=== PATIENT | male | born 1935 | race Caucasian/White ===

== ENCOUNTER 2021-03-10 11:17 | Inpatient (IN) | payer MEDICARE, BC ==
[2021-03-10] MEDS ORDERED: Sodium Chloride 0.9% 1,000 ML IV ONE ×2 (11:19→13:22)
--- NOTE | 2021-03-10 12:13 | EDM.PDOC ---
ED HPI GENERAL MEDICAL PROBLEM - General Stated Complaint: FELL Time Seen by Provider: 03/10/21 11:17 Source of Information: Reports: Patient - History of Present Illness INITIAL COMMENTS - FREE TEXT/NARRATIVE: c/o confusion pt quite confused re hx, at times he says he was on porch and fell and could not get up, other times he says he went to get his mail and could not get back to the house and spent the night in his neighbor's vehicle pt was found by a neighbor on the front lawn, he was brought to ED by EMS, there was dried stool on his legs, wearing a depends, clothing was soiled RN noted several acute bruises on dependent areas c/w prolonged lying, skin tear R elbow repaired by RN with SS when asked if he drives, he says "of course, I have a pickup and a car" however, he is O x 1 sister at bedside and has no recent hx, sister states he is mild memory problems head CT with severe atrophy per Dr Nelson without acute findings 1v CxR showed a possible apical lung mass per Dr Nelson who requested lordotic view - Related Data Allergies Allergy/AdvReac Type Severity Reaction Status Date / Time No Known Allergies Allergy Verified 04/07/15 09:07 Home Meds: Home Meds Furosemide [Lasix] 20 mg PO DAILY 04/07/15 [History] Metoprolol Tartrate 50 mg PO BID 04/07/15 [History] Multivit-Min/FA/Lycopen/Lutein [Centrum Silver Tablet] 1 each PO DAILY 04/07/15 [History] allopurinoL [Zyloprim] 300 mg PO DAILY 04/07/15 [History] Calcitriol 0.5 mcg .M.W.F.SAT 03/10/21 [History] Sodium Bicarbonate 325 mg PO BID 03/10/21 [History] amLODIPine [Norvasc] 10 mg PO DAILY 03/10/21 [History] predniSONE [Prednisone] 5 mg PO DAILY 03/10/21 [History] Past Medical History - Past Surgical History Other HEENT Surgeries/Procedures: THYROID SURGERY ED ROS GENERAL - Review of Systems Review Of Systems: See Below Constitutional: Reports: No Symptoms HEENT: Reports: No Symptoms Respiratory: Reports: No Symptoms Cardiovascular: Reports: No Symptoms Endocrine: Reports: No Symptoms GI/Abdominal: Reports: No Symptoms : Reports: No Symptoms Musculoskeletal: Reports: No Symptoms Skin: Reports: No Symptoms Neurological: Reports: Confusion Psychiatric: Reports: No Symptoms Hematologic/Lymphatic: Reports: No Symptoms Immunologic: Reports: No Symptoms ED EXAM, NEURO - Physical Exam Exam: See Below Exam Limited By: Altered Mental Status General Appearance: Alert, Other (talks complete sentences, confused) Eye Exam: Bilateral Eye: PERRL Ears: Hearing Grossly Normal Nose: Normal Inspection Throat/Mouth: Normal Inspection, Normal Lips, Normal Voice, No Airway Compromise Head Exam: Atraumatic, Normocephalic Neck: Normal Inspection, Supple, Non-Tender, Full Range of Motion. No: Lymphadenopathy (R), Lymphadenopathy (L) Respiratory/Chest: No Respiratory Distress, Lungs Clear, Normal Breath Sounds, Chest Non-Tender Cardiovascular: Regular Rate, Rhythm, No Edema, No Murmur GI/Abdominal: Soft, Non-Tender, No Distention Neurological: Alert, Normal Mood/Affect, CN II-XII Intact, No Motor/Sensory Deficits, Other (he states he is in [place], [place] and [employer]) Back Exam: Normal Inspection, Full Range of Motion Extremities: Other (1-2+ edema for foot/ankle/pretib b/l, trace edema above knees b/l) Psychiatric: Normal Affect, Normal Mood, Other (pleasant, talkative, jovial) Skin Exam: Warm, Dry, Intact, Other (erythema without skin breakdown on pelvis posteriorly c/w prolonged pressure) #1 Interpretation EKG Date: 03/10/21 Time: 11:50 Rhythm: NSR [place]: Normal Comparison: NA - No Prior EKG EKG Interpretation Comments: SR, inc'd SC 224, 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, incomplete RBBB and LAFB Course - Vital Signs Last Recorded V/S: Last Vital Signs Temp 36.7 C 03/10/21 11:17 Pulse 89 03/10/21 11:17 Resp 18 03/10/21 11:17 BP 119/67 03/10/21 11:17 Pulse Ox - Orders/Labs/Meds Orders: Active Orders 24 hr Category Date Time Status EKG Documentation Completion [RC] ASDIRECTED Care 03/10/21 11:20 Ordered Chest 1V Frontal [CR] Stat Exams 03/10/21 Taken Chest 1V Frontal [CR] Stat Exams 03/10/21 11:19 Ordered CORONAVIRUS COVID-19 RHODA [MOLEC] Stat Lab 03/10/21 11:21 Ordered CULTURE BLOOD [BC] Urgent Lab 03/10/21 11:20 Ordered CULTURE BLOOD [BC] Urgent Lab 03/10/21 11:20 Ordered CULTURE URINE [RM] Stat Lab 03/10/21 13:28 Ordered UA W/MICROSCOPIC [URIN] Stat Lab 03/10/21 11:19 Ordered Sodium Chloride 0.9% [Normal Saline] 1,000 ml Med 03/10/21 13:22 Ordered IV .BOLUS Blood Culture x2 Reflex Set [OM.PC] Urgent Oth 03/10/21 11:19 Ordered EKG 12 Lead [EK] Routine Ther 03/10/21 11:19 Ordered Medication Orders Sodium Chloride (Normal Saline) 1,000 mls @ 999 mls/hr IV .BOLUS ONE Stop: 03/10/21 14:22 Last Admin: 03/10/21 13:29 Dose: 999 mls/hr Documented by: JOSE EDUARDO Labs: Laboratory Tests 03/10/21 03/10/21 03/10/21 Range/Units 12:25 12:25 12:25 WBC 17.4 H (3.2-10.1) x10-3/uL RBC 4.05 (3.90-5.90) x10(6)uL Hgb 12.5 L (12.9-17.7) g/dL Hct 38.9 (38.3-50.1) % MCV 96.1 (80.8-98.7) fL MCH 30.9 (27.0-33.3) pg MCHC 32.2 (28.7-35.3) g/dL RDW 16.7 H (12.4-15.0) % Plt Count 219 (117-477) x10(3)uL MPV 7.8 (6.7-11.0) fL Add Manual Diff Yes Neutrophils % (Manual) 86 H (46-82) % Lymphocytes % (Manual) 8 L (13-37) % Monocytes % (Manual) 6 (4-12) % Sodium 146 H (135-145) mmol/L Potassium 4.6 (3.5-5.3) mmol/L Chloride 106 (100-110) mmol/L Carbon Dioxide 21 (21-32) mmol/L BUN 59 H (7-18) mg/dL Creatinine 4.6 H* (0.70-1.30) mg/dL Est Cr Clr Drug Dosing 13.40 mL/min Estimated GFR (MDRD) 12 L (>60) BUN/Creatinine Ratio 12.8 (9-20) Glucose 87 (80-116) mg/dL Lactic Acid (0.4-2.0) mmol/L Calcium 11.1 H (8.6-10.2) mg/dL Total Bilirubin 0.6 (0.1-1.3) mg/dL AST 24 (5-25) IU/L ALT 24 (12-36) U/L Alkaline Phosphatase 77 (56-112) IU/L Creatine Kinase 242 H (60-160) IU/L Troponin I 70.3 H* (4.0-60.3) pg/mL C-Reactive Protein 3.9 H* (0.5-0.9) mg/dL Total Protein 6.8 (6.0-8.0) g/dL Albumin 3.3 (3.2-4.6) g/dL Globulin 3.5 g/dL Albumin/Globulin Ratio 0.9 // Range/Units 12:25 WBC (3.2-10.1) x10-3/uL RBC (3.90-5.90) x10(6)uL Hgb (12.9-17.7) g/dL Hct (38.3-50.1) % MCV (80.8-98.7) fL MCH (27.0-33.3) pg MCHC (28.7-35.3) g/dL RDW (12.4-15.0) % Plt Count (117-477) x10(3)uL MPV (6.7-11.0) fL Add Manual Diff Neutrophils % (Manual) (46-82) % Lymphocytes % (Manual) (13-37) % Monocytes % (Manual) (4-12) % Sodium (135-145) mmol/L Potassium (3.5-5.3) mmol/L Chloride (100-110) mmol/L Carbon Dioxide (21-32) mmol/L BUN (7-18) mg/dL Creatinine (0.70-1.30) mg/dL Est Cr Clr Drug Dosing mL/min Estimated GFR (MDRD) (>60) BUN/Creatinine Ratio (9-20) Glucose (80-116) mg/dL Lactic Acid 3.6 H* (0.4-2.0) mmol/L Calcium (8.6-10.2) mg/dL Total Bilirubin (0.1-1.3) mg/dL AST (5-25) IU/L ALT (12-36) U/L Alkaline Phosphatase (56-112) IU/L Creatine Kinase (60-160) IU/L Troponin I (4.0-60.3) pg/mL C-Reactive Protein (0.5-0.9) mg/dL Total Protein (6.0-8.0) g/dL Albumin (3.2-4.6) g/dL Globulin g/dL Albumin/Globulin Ratio Meds: Medications Generic Name Dose Route Start Last Admin Trade Name Freq PRN Reason Stop Dose Admin Sodium Chloride 1,000 mls @ 999 mls/hr 03/10/21 13:22 03/10/21 13:29 Normal Saline IV 03/10/21 14:22 999 mls/hr .BOLUS ONE Administration Discontinued Medications Generic Name Dose Route Start Last Admin Trade Name Freq PRN Reason Stop Dose Admin Ceftriaxone Sodium 1 gm 03/10/21 13:23 03/10/21 13:29 Ceftriaxone 2 Gm Vial IVPUSH 03/10/21 13:24 1 gm ONETIME ONE Administration Sodium Chloride 1,000 mls @ 999 mls/hr 03/10/21 11:19 03/10/21 12:15 Normal Saline IV 03/10/21 12:19 999 mls/hr .BOLUS ONE Administration - Re-Assessments/Exams Free Text/Narrative Re-Assessment/Exam: 03/10/21 13:43 vss, however pt developed rigors at time cath u/a obtained, ceftriaxone ordered CxR without pneumonia, no cough, no fever however pt has inc'd wbc/segs/crp mod bacteria from cath u/a c/w uti pt d/w Dr Kendrick who accepted pt in admission and is at bedside sister, nephew and his , all 3 at bedside nephew reports pt has kidney function at 13% SG 1.020, no ketones in cath urine after 1 liter NS still no spontaneous void after 1.5 liters NS baseline cognitive status uncertain, some delirium is present d/t infection, however underlying dementia likely cause of majority of confusion CK only minimally elevated at 1.5x ULN, suggesting pt was not outside all night on the grass, it rained during the night and pt is not hypothermic (temp carmita 69, temp now in midday at 86 and sun), has a normal temp now rbc in u/a c/w cath, as blood present at the time Departure - Departure Time of Disposition: 13:55 Disposition: Admitted As Inpatient 65 Condition: Fair Clinical Impression: Confusion, Moderate dehydration, Urinary tract infection, Lactic acidosis, Cerebral atrophy, Chronic kidney disease (CKD), Elevated C-reactive protein (CRP), Elevated WBC count, Left shift, Fall, Unable to stand up, Rhabdomyolysis, Delirium - Discharge Information *PRESCRIPTION DRUG MONITORING PROGRAM REVIEWED*: Not Applicable *COPY OF PRESCRIPTION DRUG MONITORING REPORT IN PATIENT KELLIE: Not Applicable Sepsis Event Note (ED) - Evaluation Sepsis Screening Result: No Definite Risk - Focused Exam Vital Signs: Vital Signs Temp Pulse Resp BP 03/10/21 11:17 36.7 C 89 18 119/67 - My Orders Last 24 Hours: My Active Orders 03/10/21 Chest 1V Frontal [CR] Stat 03/10/21 11:19 Chest 1V Frontal [CR] Stat UA W/MICROSCOPIC [URIN] Stat Blood Culture x2 Reflex Set [OM.PC] Urgent EKG 12 Lead [EK] Routine 03/10/21 11:20 EKG Documentation Completion [RC] ASDIRECTED CULTURE BLOOD [BC] Urgent CULTURE BLOOD [BC] Urgent 03/10/21 11:21 CORONAVIRUS COVID-19 RHODA [MOLEC] Stat 03/10/21 13:22 Sodium Chloride 0.9% [Normal Saline] 1,000 ml IV .BOLUS 03/10/21 13:28 CULTURE URINE [RM] Stat - Assessment/Plan Last 24 Hours: My Active Orders 03/10/21 Chest 1V Frontal [CR] Stat 03/10/21 11:19 Chest 1V Frontal [CR] Stat UA W/MICROSCOPIC [URIN] Stat Blood Culture x2 Reflex Set [OM.PC] Urgent EKG 12 Lead [EK] Routine 03/10/21 11:20 EKG Documentation Completion [RC] ASDIRECTED CULTURE BLOOD [BC] Urgent CULTURE BLOOD [BC] Urgent 03/10/21 11:21 CORONAVIRUS COVID-19 RHODA [MOLEC] Stat 03/10/21 13:22 Sodium Chloride 0.9% [Normal Saline] 1,000 ml IV .BOLUS 03/10/21 13:28 CULTURE URINE [] Stat
--- NOTE | 2021-03-10 13:07 | CT ---
INDICATION: Confusion, disoriented. CT HEAD WITHOUT CONTRAST: Spiral 3.75 mm axial sections were obtained through the brain without contrast with axial, sagittal, and coronal reconstructions 03/10/21 - no comparison. Total exam DLP was 1554.24 milligray-cm. There is thinning of the skull at the posterior parietal area on the right which may be developmental. No cranial fracture site was seen. The orbits appear to be intact with calcifications in the posterior globes bilaterally. The paranasal sinuses appeared well aerated. The mastoid air cells appear to be fairly well aerated except for a few more superior air cells on the right which could represent mastoiditis. Degenerative changes are noted at the odonto- atlantian joint of moderate degree. 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 There is no shift of midline structures. The ventricles and sulci are prominent compatible with cerebral atrophy of moderate degree. Fairly severe decreased density in the white matter is compatible with moderately severe microvascular disease type changes, but could also be on the basis of process such anoxic encephalopathy or other leukoencephalopathy. No definite bleeding site or hematoma was seen. IMPRESSION: 1. 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 2. Fairly severe generalized atrophy of the brain. 3. 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 4. Calcifications in the retinal areas of the globes bilaterally. 5. Slight deformity along the right posterior parietal bone with thinning of the cortex which may be developmental. Report was called to Dr. Pat at 1157 hours 03/10/21. [facility]
[2021-03-10] MEDS ORDERED: cefTRIAXone 2 GM Vial IVPUSH ONE (13:23)
--- NOTE | 2021-03-10 14:31 | PCM.HP.2 ---
H&P History of Present Illness - General Date of Service: 03/10/21 Admit Problem/Dx: Admission Diagnosis/Problem Admission Diagnosis/Problem Leukocytosis, UTI, confusion Source of Information: Patient, Family, Provider (ER) History Limitations: Reports: Altered Mental Status (confusion) - History of Present Illness Initial Comments - Free Text/Narative: Abhinav was brought in by EMS today, he was found by his neighbor on the front lawn this morning, had dried stool on his legs, wearing depends, clothing was soiled. He stated that he got wet and dried and then got wet again. It had rained overnight. His twin sister said she checked on his last night about 1030 and he was in bed. His nephew and sister didn't know if when power went out if something was alarming and he woke up and went outside or why he went outdoors. ER nurse noted acute bruises on dependent areas consistent with prolonged supine position, skin tear to left elbow, nurse placed steri-strips. He stated it was Monday, the month was March but knew it was 2020. He is a patient of Dr Valdez last saw him 01/22 and he saw his head track coach Dr Linedr on 02/[address] [facility]. His Creatinine on 02/23 was 4.01 and 01/22 was 4.54. 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 H ER: Head CT with severe atrophy per Dr Nelson without acute findings. CXR 1V showed a possible apical lung mass per Dr Nelson who requested lordotic view, which was clear. WBC was 17.4, Hgb 12.5, Plt 219. K 4.6, Cr 4.6, BUN 59. CRP 3.9, CK 242, troponin 70.3 Lactic acid 3.6. UA showed blood, no nitrites or leukocyte esterase, no WBC >100 RBCs but few epithelial cells, moderate bacteria, straight cathed specimen so blood likely from collection technique. Rocephin 1 gram given in ER and 2 L of fluids given. Covid vaccines 10/07 & 11/04/2020. - Related Data Allergies/Adverse Reactions: Allergies Allergy/AdvReac Type Severity Reaction Status Date / Time No Known Allergies Allergy Verified 04/07/15 09:07 Home Medications: Home Meds Multivit-Min/FA/Lycopen/Lutein [Centrum Silver Tablet] 1 each PO DAILY 04/07/15 [History] allopurinoL [Zyloprim] 300 mg PO DAILY 04/07/15 [History] Calcitriol 0.5 mcg .M.W.F.SAT 03/10/21 [History] Ergocalciferol (Vitamin D2) [Vitamin D2] 1.25 mg PO WEEKLY 03/10/21 [History] Furosemide 40 mg PO DAILY 03/10/21 [History] Metoprolol Succinate [Toprol XL 100mg] 100 mg PO BEDTIME 03/10/21 [History] Sodium Bicarbonate 325 mg PO BID 03/10/21 [History] amLODIPine Besylate [Amlodipine Besylate] 10 mg PO BEDTIME 03/10/21 [History] predniSONE [Prednisone] 5 mg PO DAILY 03/10/21 [History] Past Medical History Cardiovascular History: Reports: Heart Failure, Hypertension, Pacemaker Genitourinary History: Reports: Other (See Below) Other Genitourinary History: CKD-Stage V, polycystic kidney Musculoskeletal History: Reports: Osteoarthritis, Other (See Below) Other Musculoskeletal History: synovial cyst of hip Neurological History: Reports: Other (See Below) Other Neuro History: Extensive dementia Psychiatric History: Reports: Dementia Endocrine/Metabolic History: Reports: Other (See Below) Other Endocrine/Metabolic History: hyperuricemia Hematologic History: Reports: Anemia Oncologic (Cancer) History: Reports: Basal Cell Carcinoma - Past Surgical History Other HEENT Surgeries/Procedures: THYROID SURGERY Social & Family History - Family History Family Medical History: No Pertinent Family History - Tobacco Use Tobacco Use Status *Q: Never Tobacco User Second Hand Smoke Exposure: No - Caffeine Use Caffeine Use: Reports: Coffee - Recreational Drug Use Recreational Drug Use: No H&P Review of Systems - Review of Systems: Review Of Systems: See Below General: Reports: Chills. Denies: Fever HEENT: Denies: Ear Pain, Sinus Congestion, Sore Throat Pulmonary: Reports: Cough. Denies: Shortness of Breath Cardiovascular: Reports: No Symptoms Gastrointestinal: Reports: No Symptoms Genitourinary: Reports: No Symptoms Musculoskeletal: Reports: No Symptoms Skin: Reports: Bruising Neurological: Reports: Confusion Hematologic/Lymphatic: Reports: Easy Bruising Exam - Exam Exam: See Below - Vital Signs Vital Signs: Last Vital Signs Temp 97.8 F 03/10/21 11:30 Pulse 88 03/10/21 13:30 Resp 15 03/10/21 13:30 BP 114/70 03/10/21 13:30 Pulse Ox 97 03/10/21 13:30 Weight: 228 lb 9.9 oz - Exam General: Alert, Oriented (person, pleasantly confused), Cooperative HEENT: PERRLA, Conjunctiva Clear, EOMI, Hearing Intact, Nares Patent, Posterior Pharynx Clear, TMs Clear (grass present in right canal, removed with speculum). No: Mucosa Moist & [place] Neck: Trachea Midline. No: Lymphadenopathy Lungs: Clear to Auscultation, Normal Respiratory Effort. No: Crackles, Wheezing Cardiovascular: Regular Rate, Regular Rhythm GI/Abdominal Exam: Normal Bowel Sounds, Soft, Non-Tender, No Distention (Male) Exam: Deferred Rectal (Males) Exam: Deferred Extremities: Pedal Edema (1+ pitting BLE), Pallor. No: Increased Warmth Peripheral Pulses: 2+: Radial (L), Radial (R), Posterior Tibial (L), Posterior Tibial (R) Skin: Ecchymosis (dependent area, bilateral arms), Other (stasis dermatitis BLE) Neurological: Cranial Nerves Intact, Normal Speech, Normal Tone Neuro Extensive - Mental Status: Disorientation to Place, Disorientation to Time, Memory Loss-Recent Events, Nl Response to Commands - Patient Data Lab Results Last 24 hrs: Laboratory Results - last 24 hr 03/10/21 03/10/21 03/10/21 Range/Units 12:25 12:25 12:25 WBC 17.4 H (3.2-10.1) x10-3/uL RBC 4.05 (3.90-5.90) x10(6)uL Hgb 12.5 L (12.9-17.7) g/dL Hct 38.9 (38.3-50.1) % MCV 96.1 (80.8-98.7) fL MCH 30.9 (27.0-33.3) pg MCHC 32.2 (28.7-35.3) g/dL RDW 16.7 H (12.4-15.0) % Plt Count 219 (117-477) x10(3)uL MPV 7.8 (6.7-11.0) fL Add Manual Diff Yes Neutrophils % (Manual) 86 H (46-82) % Lymphocytes % (Manual) 8 L (13-37) % Monocytes % (Manual) 6 (4-12) % Sodium 146 H (135-145) mmol/L Potassium 4.6 (3.5-5.3) mmol/L Chloride 106 (100-110) mmol/L Carbon Dioxide 21 (21-32) mmol/L BUN 59 H (7-18) mg/dL Creatinine 4.6 H* (0.70-1.30) mg/dL Est Cr Clr Drug Dosing 13.40 mL/min Estimated GFR (MDRD) 12 L (>60) BUN/Creatinine Ratio 12.8 (9-20) Glucose 87 (80-116) mg/dL Lactic Acid (0.4-2.0) mmol/L Calcium 11.1 H (8.6-10.2) mg/dL Total Bilirubin 0.6 (0.1-1.3) mg/dL AST 24 (5-25) IU/L ALT 24 (12-36) U/L Alkaline Phosphatase 77 (56-112) IU/L Creatine Kinase 242 H (60-160) IU/L Troponin I 70.3 H* (4.0-60.3) pg/mL C-Reactive Protein 3.9 H* (0.5-0.9) mg/dL Total Protein 6.8 (6.0-8.0) g/dL Albumin 3.3 (3.2-4.6) g/dL Globulin 3.5 g/dL Albumin/Globulin Ratio 0.9 Urine Color (YELLOW) Urine Appearance (CLEAR) Urine pH (5.0-6.5) Ur Specific [place] (1.010-1.025) Urine Protein (NEGATIVE) mg/dL Urine Glucose (UA) (NORMAL) mg/dL Urine Ketones (NEGATIVE) mg/dL Urine Occult Blood (NEGATIVE) Urine Nitrite (NEGATIVE) Urine Bilirubin (NEGATIVE) Urine Urobilinogen (NEGATIVE) mg/dL Ur Leukocyte Esterase (NEGATIVE) Urine RBC (0-5) Urine WBC (0-5) Ur Squamous Epith Cells (NS,R,O) Urine Bacteria (NS) 03/10/21 03/10/21 Range/Units 12:25 13:21 WBC (3.2-10.1) x10-3/uL RBC (3.90-5.90) x10(6)uL Hgb (12.9-17.7) g/dL Hct (38.3-50.1) % MCV (80.8-98.7) fL MCH (27.0-33.3) pg MCHC (28.7-35.3) g/dL RDW (12.4-15.0) % Plt Count (117-477) x10(3)uL MPV (6.7-11.0) fL Add Manual Diff Neutrophils % (Manual) (46-82) % Lymphocytes % (Manual) (13-37) % Monocytes % (Manual) (4-12) % Sodium (135-145) mmol/L Potassium (3.5-5.3) mmol/L Chloride (100-110) mmol/L Carbon Dioxide (21-32) mmol/L BUN (7-18) mg/dL Creatinine (0.70-1.30) mg/dL Est Cr Clr Drug Dosing mL/min Estimated GFR (MDRD) (>60) BUN/Creatinine Ratio (9-20) Glucose (80-116) mg/dL Lactic Acid 3.6 H* (0.4-2.0) mmol/L Calcium (8.6-10.2) mg/dL Total Bilirubin (0.1-1.3) mg/dL AST (5-25) IU/L ALT (12-36) U/L Alkaline Phosphatase (56-112) IU/L Creatine Kinase (60-160) IU/L Troponin I (4.0-60.3) pg/mL C-Reactive Protein (0.5-0.9) mg/dL Total Protein (6.0-8.0) g/dL Albumin (3.2-4.6) g/dL Globulin g/dL Albumin/Globulin Ratio Urine Color Yellow (YELLOW) Urine Appearance Cloudy (CLEAR) Urine pH 5.0 (5.0-6.5) Ur Specific [place] 1.020 (1.010-1.025) Urine Protein 100 H (NEGATIVE) mg/dL Urine Glucose (UA) Normal (NORMAL) mg/dL Urine Ketones Negative (NEGATIVE) mg/dL Urine Occult Blood Large H (NEGATIVE) Urine Nitrite Negative (NEGATIVE) Urine Bilirubin Negative (NEGATIVE) Urine Urobilinogen Normal (NEGATIVE) mg/dL Ur Leukocyte Esterase Negative (NEGATIVE) Urine RBC >100 H (0-5) Urine WBC 0-5 (0-5) Ur Squamous Epith Cells Few H (NS,R,O) Urine Bacteria Moderate H (NS) Result Diagrams: 03/10/21 12:25 03/10/21 12:25 Sepsis Event Note - Evaluation Sepsis Screening Result: No Definite Risk - Focused Exam Vital Signs: Vital Signs Temp Pulse Resp BP Pulse Ox 03/10/21 13:30 88 15 114/70 97 03/10/21 13:00 91 15 104/51 L 97 03/10/21 12:30 90 15 116/75 96 03/10/21 11:30 97.8 F 123/72 03/10/21 11:17 98.1 F 89 18 119/67 *Q Meaningful Use (ADM) - VTE *Q VTE Mechanical Contraindications *Q: At Risk for Falls - VTE Risk Assess *Q Each Risk Factor Represents 1 Point: None Total Score 1 Point Risk Factors: 0 Each Risk Factor Represents 2 Points: None Total Score 2 Point Risk Factors: 0 Each Risk Factor Represents 3 Points: Age 75 Years or Greater Total Score 3 Point Risk Factors: 3 Each Risk Factor Represents 5 Points: None Total Score 5 Point Risk Factors: 0 Venous Thromboembolism Risk Factor Score *Q: 3 - Problem List (1) Urinary tract infection SNOMED Code(s): 79439724 ICD Code: N39.0 - URINARY TRACT INFECTION, SITE NOT SPECIFIED Status: Acute Current Visit: Yes Qualifiers: Urinary tract infection type: acute cystitis Hematuria presence: with hematuria Qualified Code(s): N30.01 - Acute cystitis with hematuria (2) Elevated WBC count SNOMED Code(s): 728442997, 836249307 ICD Code: D72.829 - ELEVATED WHITE BLOOD CELL COUNT, UNSPECIFIED Status: Ac wilma Current Visit: Yes (3) Elevated C-reactive protein (CRP) SNOMED Code(s): 076081541182018 ICD Code: R79.82 - ELEVATED C-REACTIVE PROTEIN (CRP) Status: Acute C urrent Visit: Yes (4) Confusion SNOMED Code(s): 999146964 ICD Code: R41.0 - DISORIENTATION, UNSPECIFIED Status: Acute Current Visit: Yes (5) Fall SNOMED Code(s): 4611593, 128716304 ICD Code: W19.XXXA - UNSPECIFIED FALL, INITIAL ENCOUNTER Status: Acute Current Visit: Yes (6) Lactic acidosis SNOMED Code(s): 29378012 ICD Code: E87.2 - ACIDOSIS Status: Acute Current Visit: Yes (7) Moderate dehydration SNOMED Code(s): 6674772583390 ICD Code: E86.0 - DEHYDRATION Status: Acute Current Visit: Yes (8) Rhabdomyolysis SNOMED Code(s): 731540575 ICD Code: M62.82 - RHABDOMYOLYSIS Status: Acute Current Visit: Yes (9) Unable to stand up SNOMED Code(s): 099070462 ICD Code: R68.89 - OTHER GENERAL SYMPTOMS AND SIGNS Status: Acute Current Visit: Yes (10) Chronic kidney disease (CKD) SNOMED Code(s): 486319585 ICD Code: N18.9 - CHRONIC KIDNEY DISEASE, UNSPECIFIED Status: Chronic Current Visit: Yes Qualifiers: Chronic kidney disease stage: stage 5, not on chronic dialysis Qualified Code(s): N18.5 - Chronic kidney disease, stage 5 (11) Cerebral atrophy SNOMED Code(s): 679944168 ICD Code: G31.9 - DEGENERATIVE DISEASE OF NERVOUS SYSTEM, UNSPECIFIED Status: Chronic Current Visit: Yes Problem List Initiated/Reviewed/Updated: Yes Orders Last 24hrs: Active Orders 24 hr Category Date Time Status Admission Status [Patient Status] [ADT] Routine ADT 03/10/21 13:44 Active Oxygen Therapy [RC] PRN Care 03/10/21 14:07 Ordered Up With Assistance [RC] ASDIRECTED Care 03/10/21 14:06 Ordered Up to Chair [RC] ASDIRECTED Care 03/10/21 14:06 Ordered VTE/DVT Education [RC] Per Unit Routine Care 03/10/21 14:07 Ordered Vital Signs [RC] Q4H Care 03/10/21 14:07 Ordered Renal Non-Dialysis Diet [DIET] Diet 03/10/21 Dinner Ordered Chest 1V Frontal [CR] Stat Exams 03/10/21 Taken Chest 1V Frontal [CR] Stat Exams 03/10/21 11:19 Taken CBC WITH AUTO DIFF [HEME] Routine Lab 03/11/21 06:00 Ordered CULTURE BLOOD [BC] Urgent Lab 03/10/21 12:25 Received CULTURE BLOOD [BC] Urgent Lab 03/10/21 12:30 Received CULTURE URINE [RM] Stat Lab 03/10/21 13:37 Received RENAL FUNCTION PANEL,RFP [CHEM] Routine Lab 03/11/21 06:00 Ordered Sodium Chloride 0.9% @ 100 MLS/HR(1,000ml) Med 03/10/21 14:25 Ordered Sodium Chloride 0.9% [Normal Saline] 1,000 ml IV ASDIRECTED Antiembolic Hose [OM.PC] Per Unit Routine Oth 03/10/21 14:07 Ordered Blood Culture x2 Reflex Set [OM.PC] Urgent Oth 03/10/21 11:19 Ordered VTE Mechanical Contraindications [AST] Per Unit Routine Oth 03/10/21 14:06 Ordered Resuscitation Status Routine Resus Stat 03/10/21 14:06 Ordered EKG 12 Lead [EK] Routine Ther 03/10/21 11:19 Ordered Medication Orders Sodium Chloride (Normal Saline) 1,000 mls @ 100 mls/hr IV ASDIRECTED NACHO Assessment/Plan Comment:: 1. Admit for inpatient treatment of UTI, Leukocytosis, Rhabdomyolysis, Fall with prolonged supine position, CKD stage 5, Moderate dehydration, Exposure overnight, Elevated CRP. 2. UTI/Leukocytosis: WBC 17.4, received Rocephin 1 gram IV in ER continue on the floor to start tomorrow. Repeat CBC tomorrow. BC & UC pending. 3. Dehydration: baseline Cr 4.01, received 2 liters in ER, will continue NS at 100 ml/hr. 4. CKD, stage 5 not on dialysis: Cr 4.6, IVF at 100 ml/hr, renal panel for tomorrow am. 5. Rhabdomyolysis/elevated CK: Rehydration with IV fluids at 100 ml/hr, repeat CK tomorrow. 6. Fall: PT/OT. 7. Diet: Renal, non-dialysis. 8. Activity: Up to chair and with assistance. 9. DVT prophylaxis: TEDs BLE. Lovenox 30 mg SQ daily. 10. CODE STATUS: FULL code at this time. 11. Discharge: anticipate 48-72 hours, IV fluids and antibiotics. - Mortality Measure Prognosis:: Poor
[2021-03-10] MEDS: Sodium Chloride 0.9% 1,000 ML IV SCH (15:12)
[2021-03-10] MEDS ORDERED: Enoxaparin 30 MG/0.3 ML Syringe SUBCUT SCH (15:15)
--- NOTE | 2021-03-10 15:16 | CR ---
INDICATION: Weakness, question pneumonia. CHEST ONE VIEW: Portable AP upright view of the chest 03/10/21 - no comparison. The heart did not appear enlarged. Bipolar pacemaker leads are noted with a ventricular lead tip in the area of the apex of the right ventricle. The aorta is tortuous with calcifications in the arch and descending portion. There is an area of indistinct somewhat nodular density overlying the anterior end of the left first rib. This could be on the basis of a nodule or possibly simply degenerative changes at the first rib manubrial junction. An apical lordotic view should be confirmatory. A definite active infiltrate or effusion was not identified. Degenerative changes are noted at the shoulder joints. IMPRESSION: Cannot exclude an area of nodular infiltrate in the left upper lung field. Apical lordotic view recommended for further evaluation since this most likely represents degenerative change at the left first rib manubrial junction. MTDD
--- NOTE | 2021-03-10 15:22 | CR ---
INDICATION: Lordotic view, question lung mass versus degenerative changes. CHEST ONE VIEW: Two apical lordotic views of the chest were obtained 03/10/21 at 1247 hours and compared with 1212 hours portable study from earlier today. The area of possible nodularity is found to be degenerative changes at the left first rib manubrial junction - no true mass could be identified. A definite active infiltrate or effusion was not identified. IMPRESSION: No definite acute process. Report was called to Dr. Pat at 1251 hours 03/10/21. [facility]
[2021-03-10] MEDS: Heparin Sodium 5,000 Units/ML Vial SUBCUT SCH (16:03)
[2021-03-10] MEDS: Sodium Bicarbonate 650 MG Tab PO SCH (20:51)
[2021-03-10] MEDS: amLODIPine 10 MG Tab PO SCH (20:52)
[2021-03-10] MEDS: Metoprolol Succinate 100 MG Tab.ER PO SCH (20:52)
[2021-03-11] MEDS: Heparin Sodium 5,000 Units/ML Vial SUBCUT SCH ×3 (00:30→15:39)
[2021-03-11] MEDS: Sodium Chloride 0.9% 1,000 ML IV SCH (01:47)
[2021-03-11] MEDS: Sodium Bicarbonate 650 MG Tab PO SCH ×2 (08:05→20:31)
[2021-03-11] MEDS ORDERED: Allopurinol 100 MG Tab PO SCH (09:00)
--- NOTE | 2021-03-11 10:46 | PCM.PN ---
- General Info Date of Service: 03/11/21 Subjective Update: Parvez is doing well today, states he slept well. No issues reported overnight. Ate all his breakfast. Denies any chest or abdominal pain. No nausea, vomiting or co ugh. - Patient Data Vitals - Most Recent: Last Vital Signs Temp 98.6 F 03/11/21 07:46 Pulse 85 03/11/21 07:46 Resp 14 03/11/21 07:46 BP 123/66 03/11/21 07:46 Pulse Ox 97 03/11/21 07:46 Weight - Most Recent: 231 lb 11.2 oz I&O - Last 24 Hours: Intake & Output 03/10/21 03/11/21 03/11/21 22:59 06:59 14:59 Intake Total 895 740 Output Total 50 200 Balance 845 540 Lab Results Last 24 Hours: Laboratory Results - last 24 hr 03/10/21 03/10/21 03/10/21 Range/Units 12:25 12:25 12:25 WBC 17.4 H (3.2-10.1) x10-3/uL RBC 4.05 (3.90-5.90) x10(6)uL Hgb 12.5 L (12.9-17.7) g/dL Hct 38.9 (38.3-50.1) % MCV 96.1 (80.8-98.7) fL MCH 30.9 (27.0-33.3) pg MCHC 32.2 (28.7-35.3) g/dL RDW 16.7 H (12.4-15.0) % Plt Count 219 (117-477) x10(3)uL MPV 7.8 (6.7-11.0) fL Neut % (Auto) (40.3-71.8) % Lymph % (Auto) (15.8-45.3) % Parker % (Auto) (5.5-15.2) % Eos % (Auto) (0.1-6.8) % Baso % (Auto) (0.3-3.8) % Neut # (Auto) (1.7-6.9) x10-3/uL Lymph # (Auto) (0.5-4.5) x10-3/uL Parker # (Auto) (0.0-1.2) x10-3/uL Eos # (Auto) (0.0-0.6) x10-3/uL Baso # (Auto) (0.0-0.3) x10-3/uL Add Manual Diff Yes Neutrophils % (Manual) 86 H (46-82) % Lymphocytes % (Manual) 8 L (13-37) % Monocytes % (Manual) 6 (4-12) % Sodium 146 H (135-145) mmol/L Potassium 4.6 (3.5-5.3) mmol/L Chloride 106 (100-110) mmol/L Carbon Dioxide 21 (21-32) mmol/L BUN 59 H (7-18) mg/dL Creatinine 4.6 H* (0.70-1.30) mg/dL Est Cr Clr Drug Dosing 13.40 mL/min Estimated GFR (MDRD) 12 L (>60) BUN/Creatinine Ratio 12.8 (9-20) Glucose 87 (80-116) mg/dL Lactic Acid (0.4-2.0) mmol/L Calcium 11.1 H (8.6-10.2) mg/dL Phosphorus (2.6-4.6) mg/dL Total Bilirubin 0.6 (0.1-1.3) mg/dL AST 24 (5-25) IU/L ALT 24 (12-36) U/L Alkaline Phosphatase 77 (56-112) IU/L Creatine Kinase 242 H (60-160) IU/L Troponin I 70.3 H* (4.0-60.3) pg/mL C-Reactive Protein 3.9 H* (0.5-0.9) mg/dL Total Protein 6.8 (6.0-8.0) g/dL Albumin 3.3 (3.2-4.6) g/dL Globulin 3.5 g/dL Albumin/Globulin Ratio 0.9 Urine Color (YELLOW) Urine Appearance (CLEAR) Urine pH (5.0-6.5) Ur Specific [place] (1.010-1.025) Urine Protein (NEGATIVE) mg/dL Urine Glucose (UA) (NORMAL) mg/dL Urine Ketones (NEGATIVE) mg/dL Urine Occult Blood (NEGATIVE) Urine Nitrite (NEGATIVE) Urine Bilirubin (NEGATIVE) Urine Urobilinogen (NEGATIVE) mg/dL Ur Leukocyte Esterase (NEGATIVE) Urine RBC (0-5) Urine WBC (0-5) Ur Squamous Epith Cells (NS,R,O) Urine Bacteria (NS) 03/10/21 03/10/21 03/11/21 Range/Units 12:25 13:21 06:09 WBC 10.9 H (3.2-10.1) x10-3/uL RBC 2.98 L (3.90-5.90) x10(6)uL Hgb 9.6 L (12.9-17.7) g/dL Hct 28.9 L D (38.3-50.1) % MCV 96.9 (80.8-98.7) fL MCH 32.2 (27.0-33.3) pg MCHC 33.3 (28.7-35.3) g/dL RDW 16.8 H (12.4-15.0) % Plt Count 149 (117-477) x10(3)uL MPV 7.4 (6.7-11.0) fL Neut % (Auto) 76.1 H (40.3-71.8) % Lymph % (Auto) 15.2 L (15.8-45.3) % Parker % (Auto) 6.6 (5.5-15.2) % Eos % (Auto) 1.3 (0.1-6.8) % Baso % (Auto) 0.8 (0.3-3.8) % Neut # (Auto) 8.3 H (1.7-6.9) x10-3/uL Lymph # (Auto) 1.7 (0.5-4.5) x10-3/uL Parker # (Auto) 0.7 (0.0-1.2) x10-3/uL Eos # (Auto) 0.1 (0.0-0.6) x10-3/uL Baso # (Auto) 0.1 (0.0-0.3) x10-3/uL Add Manual Diff Neutrophils % (Manual) (46-82) % Lymphocytes % (Manual) (13-37) % Monocytes % (Manual) (4-12) % Sodium (135-145) mmol/L Potassium (3.5-5.3) mmol/L Chloride (100-110) mmol/L Carbon Dioxide (21-32) mmol/L BUN (7-18) mg/dL Creatinine (0.70-1.30) mg/dL Est Cr Clr Drug Dosing mL/min Estimated GFR (MDRD) (>60) BUN/Creatinine Ratio (9-20) Glucose (80-116) mg/dL Lactic Acid 3.6 H* (0.4-2.0) mmol/L Calcium (8.6-10.2) mg/dL Phosphorus (2.6-4.6) mg/dL Total Bilirubin (0.1-1.3) mg/dL AST (5-25) IU/L ALT (12-36) U/L Alkaline Phosphatase (56-112) IU/L Creatine Kinase (60-160) IU/L Troponin I (4.0-60.3) pg/mL C-Reactive Protein (0.5-0.9) mg/dL Total Protein (6.0-8.0) g/dL Albumin (3.2-4.6) g/dL Globulin g/dL Albumin/Globulin Ratio Urine Color Yellow (YELLOW) Urine Appearance Cloudy (CLEAR) Urine pH 5.0 (5.0-6.5) Ur Specific [place] 1.020 (1.010-1.025) Urine Protein 100 H (NEGATIVE) mg/dL Urine Glucose (UA) Normal (NORMAL) mg/dL Urine Ketones Negative (NEGATIVE) mg/dL Urine Occult Blood Large H (NEGATIVE) Urine Nitrite Negative (NEGATIVE) Urine Bilirubin Negative (NEGATIVE) Urine Urobilinogen Normal (NEGATIVE) mg/dL Ur Leukocyte Esterase Negative (NEGATIVE) Urine RBC >100 H (0-5) Urine WBC 0-5 (0-5) Ur Squamous Epith Cells Few H (NS,R,O) Urine Bacteria Moderate H (NS) 03/11/21 Range/Units 06:09 WBC (3.2-10.1) x10-3/uL RBC (3.90-5.90) x10(6)uL Hgb (12.9-17.7) g/dL Hct (38.3-50.1) % MCV (80.8-98.7) fL MCH (27.0-33.3) pg MCHC (28.7-35.3) g/dL RDW (12.4-15.0) % Plt Count (117-477) x10(3)uL MPV (6.7-11.0) fL Neut % (Auto) (40.3-71.8) % Lymph % (Auto) (15.8-45.3) % Parker % (Auto) (5.5-15.2) % Eos % (Auto) (0.1-6.8) % Baso % (Auto) (0.3-3.8) % Neut # (Auto) (1.7-6.9) x10-3/uL Lymph # (Auto) (0.5-4.5) x10-3/uL Parker # (Auto) (0.0-1.2) x10-3/uL Eos # (Auto) (0.0-0.6) x10-3/uL Baso # (Auto) (0.0-0.3) x10-3/uL Add Manual Diff Neutrophils % (Manual) (46-82) % Lymphocytes % (Manual) (13-37) % Monocytes % (Manual) (4-12) % Sodium 146 H (135-145) mmol/L Potassium 4.0 (3.5-5.3) mmol/L Chloride 111 H D (100-110) mmol/L Carbon Dioxide 23 (21-32) mmol/L BUN 55 H (7-18) mg/dL Creatinine 4.2 H* (0.70-1.30) mg/dL Est Cr Clr Drug Dosing 13.86 mL/min Estimated GFR (MDRD) 14 L (>60) BUN/Creatinine Ratio 13.1 (9-20) Glucose 89 (80-116) mg/dL Lactic Acid (0.4-2.0) mmol/L Calcium 9.1 D (8.6-10.2) mg/dL Phosphorus 4.2 (2.6-4.6) mg/dL Total Bilirubin (0.1-1.3) mg/dL AST (5-25) IU/L ALT (12-36) U/L Alkaline Phosphatase (56-112) IU/L Creatine Kinase 253 H (60-160) IU/L Troponin I (4.0-60.3) pg/mL C-Reactive Protein (0.5-0.9) mg/dL Total Protein (6.0-8.0) g/dL Albumin 2.5 L (3.2-4.6) g/dL Globulin g/dL Albumin/Globulin Ratio Urine Color (YELLOW) Urine Appearance (CLEAR) Urine pH (5.0-6.5) Ur Specific [place] (1.010-1.025) Urine Protein (NEGATIVE) mg/dL Urine Glucose (UA) (NORMAL) mg/dL Urine Ketones (NEGATIVE) mg/dL Urine Occult Blood (NEGATIVE) Urine Nitrite (NEGATIVE) Urine Bilirubin (NEGATIVE) Urine Urobilinogen (NEGATIVE) mg/dL Ur Leukocyte Esterase (NEGATIVE) Urine RBC (0-5) Urine WBC (0-5) Ur Squamous Epith Cells (NS,R,O) Urine Bacteria (NS) Ravi Results Last 24 Hours: Microbiology 03/10/21 13:37 Urine Culture - Preliminary Urine, Clean Catch No Growth Med Orders - Current: Current Medications Allopurinol (Allopurinol 100 Mg Tab) 50 mg PO Q48H [facility] Last Admin: 03/11/21 08:05 Dose: 50 mg Documented by: Amlodipine Besylate (Amlodipine 10 Mg Tab) 10 mg PO BEDTIME [facility] Last Admin: 03/10/21 20:52 Dose: 10 mg Documented by: Heparin Sodium (Porcine) (Heparin Sodium 5,000 Units/Ml Vial) 5,000 units SUBCUT Q8H [facility] Last Admin: 03/11/21 07:49 Dose: 5,000 units Documented by: Dextrose/Water (Dextrose 5% In Water) 1,000 mls @ 100 mls/hr IV ASDIRECTED [facility] Metoprolol Succinate (Metoprolol Succinate 100 Mg Tab.Er) 100 mg PO BEDTIME [facility] Last Admin: 03/10/21 20:52 Dose: 100 mg Documented by: Sodium Bicarbonate (Sodium Bicarbonate 650 Mg Tab) 325 mg PO BID [facility] Last Admin: 03/11/21 08:05 Dose: 325 mg Documented by: Discontinued Medications Ceftriaxone Sodium (Ceftriaxone 2 Gm Vial) 1 gm IVPUSH ONETIME ONE Stop: 03/10/21 13:24 Last Admin: 03/10/21 13:29 Dose: 1 gm Documented by: Ceftriaxone Sodium (Ceftriaxone 1 Gm Vial) 1 gm IVPUSH Q24H [facility] Sodium Chloride (Normal Saline) 1,000 mls @ 999 mls/hr IV .BOLUS ONE Stop: 03/10/21 12:19 Last Admin: 03/10/21 12:15 Dose: 999 mls/hr Documented by: Sodium Chloride (Normal Saline) 1,000 mls @ 999 mls/hr IV .BOLUS ONE Stop: 03/10/21 14:22 Last Admin: 03/10/21 13:29 Dose: 999 mls/hr Documented by: Sodium Chloride (Normal Saline) 1,000 mls @ 100 mls/hr IV ASDIRECTED N[facility]O Last Admin: 03/11/21 01:47 Dose: 100 mls/hr Documented by: - Exam General: Alert, Oriented (person, pleasantly confused), Cooperative, No Acute Distress Lungs: Clear to Auscultation, Normal Respiratory Effort Cardiovascular: Regular Rate, Regular Rhythm GI/Abdominal Exam: Normal Bowel Sounds, Soft, Non-Tender, No Distention Extremities: Pedal Edema (2+ BLE, TEDs in place). No: Increased Warmth Peripheral Pulses: 2+: Radial (L), Radial (R) Skin: Ecchymosis (bilateral arms, dependent areas) Wound/Incisions: Other (Skin tear to right elbow, dressing intact) - Patient Data Lab Results Last 24 hrs: Laboratory Results - last 24 hr 03/10/21 03/10/21 03/10/21 Range/Units 12:25 12:25 12:25 WBC 17.4 H (3.2-10.1) x10-3/uL RBC 4.05 (3.90-5.90) x10(6)uL Hgb 12.5 L (12.9-17.7) g/dL Hct 38.9 (38.3-50.1) % MCV 96.1 (80.8-98.7) fL MCH 30.9 (27.0-33.3) pg MCHC 32.2 (28.7-35.3) g/dL RDW 16.7 H (12.4-15.0) % Plt Count 219 (117-477) x10(3)uL MPV 7.8 (6.7-11.0) fL Neut % (Auto) (40.3-71.8) % Lymph % (Auto) (15.8-45.3) % Parker % (Auto) (5.5-15.2) % Eos % (Auto) (0.1-6.8) % Baso % (Auto) (0.3-3.8) % Neut # (Auto) (1.7-6.9) x10-3/uL Lymph # (Auto) (0.5-4.5) x10-3/uL Parker # (Auto) (0.0-1.2) x10-3/uL Eos # (Auto) (0.0-0.6) x10-3/uL Baso # (Auto) (0.0-0.3) x10-3/uL Add Manual Diff Yes Neutrophils % (Manual) 86 H (46-82) % Lymphocytes % (Manual) 8 L (13-37) % Monocytes % (Manual) 6 (4-12) % Sodium 146 H (135-145) mmol/L Potassium 4.6 (3.5-5.3) mmol/L Chloride 106 (100-110) mmol/L Carbon Dioxide 21 (21-32) mmol/L BUN 59 H (7-18) mg/dL Creatinine 4.6 H* (0.70-1.30) mg/dL Est Cr Clr Drug Dosing 13.40 mL/min Estimated GFR (MDRD) 12 L (>60) BUN/Creatinine Ratio 12.8 (9-20) Glucose 87 (80-116) mg/dL Lactic Acid (0.4-2.0) mmol/L Calcium 11.1 H (8.6-10.2) mg/dL Phosphorus (2.6-4.6) mg/dL Total Bilirubin 0.6 (0.1-1.3) mg/dL AST 24 (5-25) IU/L ALT 24 (12-36) U/L Alkaline Phosphatase 77 (56-112) IU/L Creatine Kinase 242 H (60-160) IU/L Troponin I 70.3 H* (4.0-60.3) pg/mL C-Reactive Protein 3.9 H* (0.5-0.9) mg/dL Total Protein 6.8 (6.0-8.0) g/dL Albumin 3.3 (3.2-4.6) g/dL Globulin 3.5 g/dL Albumin/Globulin Ratio 0.9 Urine Color (YELLOW) Urine Appearance (CLEAR) Urine pH (5.0-6.5) Ur Specific [place] (1.010-1.025) Urine Protein (NEGATIVE) mg/dL Urine Glucose (UA) (NORMAL) mg/dL Urine Ketones (NEGATIVE) mg/dL Urine Occult Blood (NEGATIVE) Urine Nitrite (NEGATIVE) Urine Bilirubin (NEGATIVE) Urine Urobilinogen (NEGATIVE) mg/dL Ur Leukocyte Esterase (NEGATIVE) Urine RBC (0-5) Urine WBC (0-5) Ur Squamous Epith Cells (NS,R,O) Urine Bacteria (NS) 03/10/21 03/10/21 03/11/21 Range/Units 12:25 13:21 06:09 WBC 10.9 H (3.2-10.1) x10-3/uL RBC 2.98 L (3.90-5.90) x10(6)uL Hgb 9.6 L (12.9-17.7) g/dL Hct 28.9 L D (38.3-50.1) % MCV 96.9 (80.8-98.7) fL MCH 32.2 (27.0-33.3) pg MCHC 33.3 (28.7-35.3) g/dL RDW 16.8 H (12.4-15.0) % Plt Count 149 (117-477) x10(3)uL MPV 7.4 (6.7-11.0) fL Neut % (Auto) 76.1 H (40.3-71.8) % Lymph % (Auto) 15.2 L (15.8-45.3) % Parker % (Auto) 6.6 (5.5-15.2) % Eos % (Auto) 1.3 (0.1-6.8) % Baso % (Auto) 0.8 (0.3-3.8) % Neut # (Auto) 8.3 H (1.7-6.9) x10-3/uL Lymph # (Auto) 1.7 (0.5-4.5) x10-3/uL Parker # (Auto) 0.7 (0.0-1.2) x10-3/uL Eos # (Auto) 0.1 (0.0-0.6) x10-3/uL Baso # (Auto) 0.1 (0.0-0.3) x10-3/uL Add Manual Diff Neutrophils % (Manual) (46-82) % Lymphocytes % (Manual) (13-37) % Monocytes % (Manual) (4-12) % Sodium (135-145) mmol/L Potassium (3.5-5.3) mmol/L Chloride (100-110) mmol/L Carbon Dioxide (21-32) mmol/L BUN (7-18) mg/dL Creatinine (0.70-1.30) mg/dL Est Cr Clr Drug Dosing mL/min Estimated GFR (MDRD) (>60) BUN/Creatinine Ratio (9-20) Glucose (80-116) mg/dL Lactic Acid 3.6 H* (0.4-2.0) mmol/L Calcium (8.6-10.2) mg/dL Phosphorus (2.6-4.6) mg/dL Total Bilirubin (0.1-1.3) mg/dL AST (5-25) IU/L ALT (12-36) U/L Alkaline Phosphatase (56-112) IU/L Creatine Kinase (60-160) IU/L Troponin I (4.0-60.3) pg/mL C-Reactive Protein (0.5-0.9) mg/dL Total Protein (6.0-8.0) g/dL Albumin (3.2-4.6) g/dL Globulin g/dL Albumin/Globulin Ratio Urine Color Yellow (YELLOW) Urine Appearance Cloudy (CLEAR) Urine pH 5.0 (5.0-6.5) Ur Specific [place] 1.020 (1.010-1.025) Urine Protein 100 H (NEGATIVE) mg/dL Urine Glucose (UA) Normal (NORMAL) mg/dL Urine Ketones Negative (NEGATIVE) mg/dL Urine Occult Blood Large H (NEGATIVE) Urine Nitrite Negative (NEGATIVE) Urine Bilirubin Negative (NEGATIVE) Urine Urobilinogen Normal (NEGATIVE) mg/dL Ur Leukocyte Esterase Negative (NEGATIVE) Urine RBC >100 H (0-5) Urine WBC 0-5 (0-5) Ur Squamous Epith Cells Few H (NS,R,O) Urine Bacteria Moderate H (NS) 03/11/21 Range/Units 06:09 WBC (3.2-10.1) x10-3/uL RBC (3.90-5.90) x10(6)uL Hgb (12.9-17.7) g/dL Hct (38.3-50.1) % MCV (80.8-98.7) fL MCH (27.0-33.3) pg MCHC (28.7-35.3) g/dL RDW (12.4-15.0) % Plt Count (117-477) x10(3)uL MPV (6.7-11.0) fL Neut % (Auto) (40.3-71.8) % Lymph % (Auto) (15.8-45.3) % Parker % (Auto) (5.5-15.2) % Eos % (Auto) (0.1-6.8) % Baso % (Auto) (0.3-3.8) % Neut # (Auto) (1.7-6.9) x10-3/uL Lymph # (Auto) (0.5-4.5) x10-3/uL Parker # (Auto) (0.0-1.2) x10-3/uL Eos # (Auto) (0.0-0.6) x10-3/uL Baso # (Auto) (0.0-0.3) x10-3/uL Add Manual Diff Neutrophils % (Manual) (46-82) % Lymphocytes % (Manual) (13-37) % Monocytes % (Manual) (4-12) % Sodium 146 H (135-145) mmol/L Potassium 4.0 (3.5-5.3) mmol/L Chloride 111 H D (100-110) mmol/L Carbon Dioxide 23 (21-32) mmol/L BUN 55 H (7-18) mg/dL Creatinine 4.2 H* (0.70-1.30) mg/dL Est Cr Clr Drug Dosing 13.86 mL/min Estimated GFR (MDRD) 14 L (>60) BUN/Creatinine Ratio 13.1 (9-20) Glucose 89 (80-116) mg/dL Lactic Acid (0.4-2.0) mmol/L Calcium 9.1 D (8.6-10.2) mg/dL Phosphorus 4.2 (2.6-4.6) mg/dL Total Bilirubin (0.1-1.3) mg/dL AST (5-25) IU/L ALT (12-36) U/L Alkaline Phosphatase (56-112) IU/L Creatine Kinase 253 H (60-160) IU/L Troponin I (4.0-60.3) pg/mL C-Reactive Protein (0.5-0.9) mg/dL Total Protein (6.0-8.0) g/dL Albumin 2.5 L (3.2-4.6) g/dL Globulin g/dL Albumin/Globulin Ratio Urine Color (YELLOW) Urine Appearance (CLEAR) Urine pH (5.0-6.5) Ur Specific [place] (1.010-1.025) Urine Protein (NEGATIVE) mg/dL Urine Glucose (UA) (NORMAL) mg/dL Urine Ketones (NEGATIVE) mg/dL Urine Occult Blood (NEGATIVE) Urine Nitrite (NEGATIVE) Urine Bilirubin (NEGATIVE) Urine Urobilinogen (NEGATIVE) mg/dL Ur Leukocyte Esterase (NEGATIVE) Urine RBC (0-5) Urine WBC (0-5) Ur Squamous Epith Cells (NS,R,O) Urine Bacteria (NS) Result Diagrams: 03/11/21 06:09 03/11/21 06:09 Ravi Results Last 24 hrs: Microbiology 03/10/21 13:37 Urine Culture - Preliminary Urine, Clean Catch No Growth Sepsis Event Note - Evaluation Sepsis Screening Result: No Definite Risk - Focused Exam Vital Signs: Vital Signs Temp Temp Pulse Resp BP Pulse Ox 03/11/21 07:46 98.6 F 85 14 123/66 97 03/11/21 06:00 97.8 F 88 20 128/70 93 L 03/11/21 00:00 98.4 F 94 18 121/69 93 L - Problem List & Annotations (1) Urinary tract infection SNOMED Code(s): 66085823 Code(s): N39.0 - URINARY TRACT INFECTION, SITE NOT SPECIFIED Status: Ruled- out Current Visit: Yes Qualifiers: Urinary tract infection type: acute cystitis Hematuria presence: with hematuria Qualified Code(s): N30.01 - Acute cystitis with hematuria Annotation/Comment:: ruled out, Urine culture negative. (2) Elevated WBC count SNOMED Code(s): 432240502, 308770137 Code(s): D72.829 - ELEVATED WHITE BLOOD CELL COUNT, UNSPECIFIED Status: Acute Current Visit: Yes Annotation/Comment:: Improved with IV fluids, no fevers, chills. NO source of infection. CXR negative. UC negative. (3) Elevated C-reactive protein (CRP) SNOMED Code(s): 490573379035192 Code(s): R79.82 - ELEVATED C-REACTIVE PROTEIN (CRP) Status: Acute Current Visit: Yes (4) Confusion SNOMED Code(s): 157425475 Code(s): R41.0 - DISORIENTATION, UNSPECIFIED Status: Acute Current Visit: Yes (5) Fall SNOMED Code(s): 4295361, 466250951 Code(s): W19.XXXA - UNSPECIFIED FALL, INITIAL ENCOUNTER Status: Acute Cu rrent Visit: Yes (6) Lactic acidosis SNOMED Code(s): 35036027 Code(s): E87.2 - ACIDOSIS Status: Acute Current Visit: Yes (7) Moderate dehydration SNOMED Code(s): 8731346530919 Code(s): E86.0 - DEHYDRATION Status: Acute Current Visit: Yes (8) Rhabdomyolysis SNOMED Code(s): 186856695 Code(s): M62.82 - RHABDOMYOLYSIS Status: Acute Current Visit: Yes Annotation/Comment:: CK 252, continue IV fluids. (9) Unable to stand up SNOMED Code(s): 229873053 Code(s): R68.89 - OTHER GENERAL SYMPTOMS AND SIGNS Status: Acute Current Visit: Yes (10) Chronic kidney disease (CKD) SNOMED Code(s): 943791257 Code(s): N18.9 - CHRONIC KIDNEY DISEASE, UNSPECIFIED Status: Chronic Current Visit: Yes Qualifiers: Chronic kidney disease stage: stage 5, not on chronic dialysis Qualified Code(s): N18.5 - Chronic kidney disease, stage 5 Annotation/Comment:: Improved Cr 4.2, baseline 4.0 (11) Cerebral atrophy SNOMED Code(s): 180213331 Code(s): G31.9 - DEGENERATIVE DISEASE OF NERVOUS SYSTEM, UNSPECIFIED Status: Chronic Current Visit: Yes - Problem List Review Problem List Initiated/Reviewed/Updated: Yes - My Orders Last 24 Hours: My Active Orders 03/10/21 14:06 Up With Assistance [RC] ASDIRECTED Up to Chair [RC] ASDIRECTED VTE Mechanical Contraindications [AST] Per Unit Routine Resuscitation Status Routine 03/10/21 14:07 Oxygen Therapy [RC] PRN Vital Signs [RC] 08,12,16,20,00,04 Antiembolic Hose [OM.PC] Per Unit Routine 03/10/21 16:00 Heparin Sodium 5,000 units SUBCUT Q8H 03/10/21 Dinner Renal Non-Dialysis Diet [DIET] 03/10/21 21:00 Metoprolol Succinate [Toprol XL] 100 mg PO BEDTIME Sodium Bicarbonate 325 mg PO BID amLODIPine [Norvasc] 10 mg PO BEDTIME 03/11/21 08:06 OT Evaluation and Treatment [CONS] Routine PT Evaluation and Treatment [CONS] Routine 03/11/21 09:00 allopurinoL [Zyloprim] 50 mg PO Q48H 03/11/21 09:15 Dextrose 5% in Water 1,000 ml IV ASDIRECTED 03/12/21 06:00 BASIC METABOLIC PANEL,BMP [CHEM] Routine CBC WITH AUTO DIFF [HEME] Routine CREATINE KINASE,CK [CHEM] Routine - Plan Plan:: 1. Leukocytosis: WBC 10.9, UTI ruled out, discontinue Rocephin. Repeat CBC tomorrow. UC no growth, CXR negative. 3. Dehydration: baseline Cr 4.01, Cr today 4.2, change to D5W as his Na & Cl have gone up. 4. CKD, stage 5 not on dialysis: Cr 4.2, D5W at 100 ml/hr, BMP for tomorrow am. 5. Rhabdomyolysis/elevated CK: Rehydration with IV fluids at 100 ml/hr, repeat CK tomorrow. 6. Fall: PT/OT. 7. Diet: Renal, non-dialysis. 8. Activity: Up to chair and with assistance. 9. DVT prophylaxis: TEDs BLE. Changed to Heparin due to creatinine clearance, platelets dropped so recheck tomorrow and may need to discontinue if continues to drop. 10. CODE STATUS: FULL code at this time. 11. Discharge: anticipate 48 IV fluids, monitoring CK levels.
[2021-03-11] MEDS: Dextrose 5% in Water 1,000 ML IV SCH ×2 (12:35→23:55)
[2021-03-11] MEDS ORDERED: cefTRIAXone 1 GM in Sodium Chloride 0.9% 50 ML IV SCH (13:30)
[2021-03-11] MEDS ORDERED: cefTRIAXone 1 GM Vial IVPUSH SCH (13:30)
[2021-03-11] MEDS: Metoprolol Succinate 100 MG Tab.ER PO SCH (20:31)
[2021-03-11] MEDS: amLODIPine 10 MG Tab PO SCH (20:31)
[2021-03-12] MEDS: Heparin Sodium 5,000 Units/ML Vial SUBCUT SCH ×2 (00:01→07:49)
[2021-03-12] MEDS: Sodium Bicarbonate 650 MG Tab PO SCH (08:00)
--- NOTE | 2021-03-12 08:54 | PCM.PN ---
- General Info Date of Service: 03/12/21 Admission Dx/Problem (Free Text): Admission Diagnosis/Problem Admission Diagnosis/Problem Leukocytosis, UTI, confusion Subjective Update: Don is doing well today, states he slept well. Mild confusion reported overnight. Ate all his breakfast. Denies any chest or abdominal pain. No nausea, vomiting or cough. - Review of Systems HEENT: Reports: No Symptoms Pulmonary: Reports: No Symptoms Cardiovascular: Reports: No Symptoms - Patient Data Vitals - Most Recent: Last Vital Signs Temp 98.6 F 03/12/21 00:00 Pulse 85 03/12/21 00:00 Resp 20 03/12/21 00:00 BP 124/64 03/12/21 00:00 Pulse Ox 95 03/12/21 00:00 Weight - Most Recent: 105.097 kg I&O - Last 24 Hours: Intake & Output 03/11/21 03/12/21 03/12/21 22:59 06:59 14:59 Intake Total 815 790 Output Total 125 Balance 690 790 Lab Results Last 24 Hours: Laboratory Results - last 24 hr 03/12/21 03/12/21 Range/Units 06:04 06:04 WBC 9.3 (3.2-10.1) x10-3/uL RBC 2.69 L (3.90-5.90) x10(6)uL Hgb 8.6 L (12.9-17.7) g/dL Hct 26.0 L (38.3-50.1) % MCV 96.7 (80.8-98.7) fL MCH 32.1 (27.0-33.3) pg MCHC 33.2 (28.7-35.3) g/dL RDW 17.1 H (12.4-15.0) % Plt Count 129 (117-477) x10(3)uL MPV 7.1 (6.7-11.0) fL Neut % (Auto) 72.0 H (40.3-71.8) % Lymph % (Auto) 17.8 (15.8-45.3) % [place] % (Auto) 7.1 (5.5-15.2) % Eos % (Auto) 2.3 (0.1-6.8) % Baso % (Auto) 0.8 (0.3-3.8) % Neut # (Auto) 6.7 (1.7-6.9) x10-3/uL Lymph # (Auto) 1.7 (0.5-4.5) x10-3/uL [place] # (Auto) 0.7 (0.0-1.2) x10-3/uL Eos # (Auto) 0.2 (0.0-0.6) x10-3/uL Baso # (Auto) 0.1 (0.0-0.3) x10-3/uL Sodium 140 (135-145) mmol/L Potassium 3.5 (3.5-5.3) mmol/L Chloride 106 D (100-110) mmol/L Carbon Dioxide 22 (21-32) mmol/L BUN 51 H (7-18) mg/dL Creatinine 4.0 H* (0.70-1.30) mg/dL Est Cr Clr Drug Dosing 14.55 mL/min Estimated GFR (MDRD) 14 L (>60) BUN/Creatinine Ratio 12.8 (9-20) Glucose 105 (80-116) mg/dL Calcium 8.5 L (8.6-10.2) mg/dL Creatine Kinase 145 (60-160) IU/L Ravi Results Last 24 Hours: Microbiology 03/10/21 13:37 Urine Culture - Final Urine, Clean Catch NO GROWTH AFTER 2 DAYS 03/10/21 12:25 Aerobic Blood Culture - Preliminary Blood - Venous NO GROWTH AFTER 1 DAY Anaerobic Blood Culture - Preliminary NO GROWTH AFTER 1 DAY 03/10/21 12:30 Aerobic Blood Culture - Preliminary Blood - Venous - Lab Draw NO GROWTH AFTER 1 DAY Anaerobic Blood Culture - Preliminary NO GROWTH AFTER 1 DAY Med Orders - Current: Current Medications Allopurinol (Allopurinol 100 Mg Tab) 50 mg PO Q48H [facility] Last Admin: 03/11/21 08:05 Dose: 50 mg Documented by: Amlodipine Besylate (Amlodipine 10 Mg Tab) 10 mg PO BEDTIME [facility] Last Admin: 03/11/21 20:31 Dose: 10 mg Documented by: Heparin Sodium (Porcine) (Heparin Sodium 5,000 Units/Ml Vial) 5,000 units SUBCUT Q8H [facility] Last Admin: 03/12/21 07:49 Dose: 5,000 units Documented by: Metoprolol Succinate (Metoprolol Succinate 100 Mg Tab.Er) 100 mg PO BEDTIME [facility] Last Admin: 03/11/21 20:31 Dose: 100 mg Documented by: Sodium Bicarbonate (Sodium Bicarbonate 650 Mg Tab) 325 mg PO BID [facility] Last Admin: 03/12/21 08:00 Dose: 325 mg Documented by: Discontinued Medications Ceftriaxone Sodium (Ceftriaxone 2 Gm Vial) 1 gm IVPUSH ONETIME ONE Stop: 03/10/21 13:24 Last Admin: 03/10/21 13:29 Dose: 1 gm Documented by: Ceftriaxone Sodium (Ceftriaxone 1 Gm Vial) 1 gm IVPUSH Q24H [facility] Sodium Chloride (Normal Saline) 1,000 mls @ 999 mls/hr IV .BOLUS ONE Stop: 03/10/21 12:19 Last Admin: 03/10/21 12:15 Dose: 999 mls/hr Documented by: Sodium Chloride (Normal Saline) 1,000 mls @ 999 mls/hr IV .BOLUS ONE Stop: 03/10/21 14:22 Last Admin: 03/10/21 13:29 Dose: 999 mls/hr Documented by: Sodium Chloride (Normal Saline) 1,000 mls @ 100 mls/hr IV ASDIRECTED [facility] Last Admin: 03/11/21 01:47 Dose: 100 mls/hr Documented by: Dextrose/Water (Dextrose 5% In Water) 1,000 mls @ 100 mls/hr IV ASDIRECTED [facility] Last Admin: 03/11/21 23:55 Dose: 100 mls/hr Documented by: - Exam Quality Assessment: No: Supplemental Oxygen General: Alert, Oriented, Cooperative Lungs: Clear to Auscultation Cardiovascular: Regular Rate Skin: Warm Wound/Incisions: Healing Well Neurological: No New Focal Deficit Psy/Mental Status: Alert, Normal Affect, Normal Mood - Patient Data Lab Results Last 24 hrs: Laboratory Results - last 24 hr 03/12/21 03/12/21 Range/Units 06:04 06:04 WBC 9.3 (3.2-10.1) x10-3/uL RBC 2.69 L (3.90-5.90) x10(6)uL Hgb 8.6 L (12.9-17.7) g/dL Hct 26.0 L (38.3-50.1) % MCV 96.7 (80.8-98.7) fL MCH 32.1 (27.0-33.3) pg MCHC 33.2 (28.7-35.3) g/dL RDW 17.1 H (12.4-15.0) % Plt Count 129 (117-477) x10(3)uL MPV 7.1 (6.7-11.0) fL Neut % (Auto) 72.0 H (40.3-71.8) % Lymph % (Auto) 17.8 (15.8-45.3) % [place] % (Auto) 7.1 (5.5-15.2) % Eos % (Auto) 2.3 (0.1-6.8) % Baso % (Auto) 0.8 (0.3-3.8) % Neut # (Auto) 6.7 (1.7-6.9) x10-3/uL Lymph # (Auto) 1.7 (0.5-4.5) x10-3/uL [place] # (Auto) 0.7 (0.0-1.2) x10-3/uL Eos # (Auto) 0.2 (0.0-0.6) x10-3/uL Baso # (Auto) 0.1 (0.0-0.3) x10-3/uL Sodium 140 (135-145) mmol/L Potassium 3.5 (3.5-5.3) mmol/L Chloride 106 D (100-110) mmol/L Carbon Dioxide 22 (21-32) mmol/L BUN 51 H (7-18) mg/dL Creatinine 4.0 H* (0.70-1.30) mg/dL Est Cr Clr Drug Dosing 14.55 mL/min Estimated GFR (MDRD) 14 L (>60) BUN/Creatinine Ratio 12.8 (9-20) Glucose 105 (80-116) mg/dL Calcium 8.5 L (8.6-10.2) mg/dL Creatine Kinase 145 (60-160) IU/L Result Diagrams: 03/12/21 06:04 03/12/21 06:04 Ravi Results Last 24 hrs: Microbiology 03/10/21 13:37 Urine Culture - Final Urine, Clean Catch NO GROWTH AFTER 2 DAYS 03/10/21 12:25 Aerobic Blood Culture - Preliminary Blood - Venous NO GROWTH AFTER 1 DAY Anaerobic Blood Culture - Preliminary NO GROWTH AFTER 1 DAY 03/10/21 12:30 Aerobic Blood Culture - Preliminary Blood - Venous - Lab Draw NO GROWTH AFTER 1 DAY Anaerobic Blood Culture - Preliminary NO GROWTH AFTER 1 DAY Sepsis Event Note - Evaluation Sepsis Screening Result: No Definite Risk - Focused Exam Vital Signs: Vital Signs Temp Pulse Resp BP Pulse Ox 03/12/21 00:00 98.6 F 85 20 124/64 95 - Problem List & Annotations (1) Fall SNOMED Code(s): 6958338, 568209332 Code(s): W19.XXXA - UNSPECIFIED FALL, INITIAL ENCOUNTER Status: Acute Current Visit: Yes Qualifiers: Encounter type: subsequent encounter Qualified Code(s): W19.XXXD - Unspecified fall, subsequent encounter (2) Rhabdomyolysis SNOMED Code(s): 246284946 Code(s): M62.82 - RHABDOMYOLYSIS Status: Acute Current Visit: Yes Qualifiers: Rhabdomyolysis type: non-traumatic Qualified Code(s): M62.82 - Rhabdomyolysis Annotation/Comment:: CK 252, continue IV fluids. (3) Cerebral atrophy SNOMED Code(s): 537202239 Code(s): G31.9 - DEGENERATIVE DISEASE OF NERVOUS SYSTEM, UNSPECIFIED Status: Chronic Current Visit: Yes (4) Chronic kidney disease (CKD) SNOMED Code(s): 708224909 Code(s): N18.9 - CHRONIC KIDNEY DISEASE, UNSPECIFIED Status: Chronic Current Visit: Yes Qualifiers: Chronic kidney disease stage: stage 5, not on chronic dialysis Qualified Code(s): N18.5 - Chronic kidney disease, stage 5 Annotation/Comment:: Improved Cr 4.2, baseline 4.0 (5) Dementia SNOMED Code(s): 03745337 Code(s): F03.90 - UNSPECIFIED DEMENTIA WITHOUT BEHAVIORAL DISTURBANCE Status: Acute Current Visit: Yes Qualifiers: Alzheimer's disease onset: late-onset Dementia behavioral disturbance: without behavioral disturbance (6) HTN (hypertension) SNOMED Code(s): 67434339 Code(s): I10 - ESSENTIAL (PRIMARY) HYPERTENSION Status: Acute Current Visit: Yes Qualifiers: Hypertension type: primary hypertension Qualified Code(s): I10 - Essential (primary) hypertension - Problem List Review Problem List Initiated/Reviewed/Updated: Yes - Plan Plan:: His hemoglobin is low which I believe dilutional. He seems alert this morning. His creatinine is back to baseline of 4.0. I feel he is ready to be discharged, awaiting disposition.I will DC his fluids,his CK is normalized.
[2021-03-12 13:25] VITALS: BP 111/67; PULSE 83
--- NOTE | 2021-03-12 20:06 | DISCH ---
DISCHARGE DATE: 03/12/2021 REASON FOR ADMISSION: 1. Fall. 2. Rhabdomyolysis. 3. Chronic kidney disease. 4. Hypertension. 5. Mild dementia. BRIEF HISTORY AND HOSPITAL COURSE: An 85-year-old male who was found outside, not knowing how long he had been there. CT of the head was negative except cerebral atrophy. Chest x-ray was normal. His creatinine was 4.6 on admission. His baseline being 4.0. He was given fluids. His CK initially was 242 and normalized to 145 today. His vital signs remained normal. He was discharged today back home, needing home health services for physical therapy, occupational therapy, and nursing. Will go home on his regular medications. No changes were made. He will see Dr. Valdez next week. I spent more than 35 minutes in the discharge of the patient. /[id number] NICOLE/MARYLU
== END 2021-03-12 14:00 | disposition home health service (06) | DRG 558 ==
LOC: FB.ED 11:17 → UNDOADMIN 13:41 → FB.MS 13:41
PROVIDERS: ADMIT Family Medicine; ATTEND Family Medicine
DX: N39.0 Urinary tract infection, site not specified (principal); M62.82 Rhabdomyolysis; N18.5 Chronic kidney disease, stage 5; E87.2 Acidosis; I13.2 Hypertensive heart and chronic kidney disease with heart failure and with stage 5 chronic kidney disease, or end stage renal disease; E86.0 Dehydration; G31.9 Degenerative disease of nervous system, unspecified; I50.9 Heart failure, unspecified; M19.90 Unspecified osteoarthritis, unspecified site; D63.1 Anemia in chronic kidney disease; G30.1 Alzheimer's disease with late onset; F02.80 Dementia in other diseases classified elsewhere, unspecified severity, without behavioral disturbance, psychotic disturbance, mood disturbance, and anxiety; R79.82 Elevated C-reactive protein (CRP); D72.829 Elevated white blood cell count, unspecified; Z95.0 Presence of cardiac pacemaker; W19.XXXA Unspecified fall, initial encounter; Z79.52 Long term (current) use of systemic steroids; R41.0 Disorientation, unspecified; Z79.899 Other long term (current) drug therapy
CPT/HCPCS: 36415; 70450; 71045 ×2; 80053; 81001; 82550; 83605; 84484; 85025; 86140; 87040 ×2; 87086; 93005; 96374; 99285; J0696; J7030 ×2; 80048; 80069; 97116-GP; 97161-GP; 97165-GO; A9270-GY; J1644; J7060

== ENCOUNTER 2023-08-23 23:54 | Inpatient (IN) | payer MEDICARE, BC ==
[2023-08-24 01:44] LABS: BASOPHILS ABSOLUTE AUTO 0.1 x10-3/uL (0.0-0.3); BASOPHILS PERCENT AUTO 0.6 % (0.3-3.8); EOSINOPHILS ABSOLUTE AUTO 0.3 x10-3/uL (0.0-0.6); EOSINOPHILS PERCENT AUTO 2.9 % (0.1-6.8); HEMOGLOBIN 10.7 g/dL (12.9-17.7); LYMPHOCYTES ABSOLUTE AUTO 1.1 x10-3/uL (0.5-4.5); LYMPHOCYTES PERCENT AUTO 11.9 % (15.8-45.3); MEAN CORPUSCULAR HEMOGLOBIN 31.6 pg (27.0-33.3); MEAN CORPUSCULAR HGB CONC 33.5 g/dL (28.7-35.3); MEAN CORPUSCULAR VOLUME 94.3 fL (80.8-98.7); MEAN PLATELET VOLUME 7.8 fL (6.7-11.0); MONOCYTES ABSOLUTE AUTO 0.8 x10-3/uL (0.0-1.2); MONOCYTES PERCENT AUTO 8.5 % (5.5-15.2); NEUTROPHILS ABSOLUTE AUTO 6.8 x10-3/uL (1.7-6.9); NEUTROPHILS PERCENT AUTO 76.1 % (40.3-71.8); PLATELET COUNT,PLT 157 x10(3)uL (117-477); RED CELL DISTRIBUTION WIDTH 15.5 % (12.4-15.0)
[2023-08-24 01:46] LABS: A/G RATIO 0.9; ALANINE AMINOTRANSFERASE,ALT 24 U/L (12-36); ALBUMIN 2.9 g/dL (2.9-4.5); ALKALINE PHOSPHATASE 79 IU/L (56-112); ASPARTATE AMNIOTRANSFERASE,AST 17 IU/L (5-25); BILIRUBIN TOTAL 0.3 mg/dL (0.1-1.3); BLOOD UREA NITROGEN,BUN 64 mg/dL (7-18); BUN/CREATININE RATIO 13.3 (9-20); CALCIUM 10.2 mg/dL (8.6-10.2); CARBON DIOXIDE,CO2 26 mmol/L (21-32); CHLORIDE,CL 106 mmol/L (100-110); EST CRCL DRUG DOSING (CG) 11.79 mL/min; ESTIMATED GFR 11 mL/min (>60); GLUCOSE RANDOM 122 mg/dL (80-116); POTASSIUM,K 4.1 mmol/L (3.5-5.3); PROTEIN TOTAL,TP 6.1 g/dL (6.0-8.0); SODIUM,NA 145 mmol/L (135-145)
[2023-08-24 01:48] LABS: CREATININE 4.8 mg/dL (0.70-1.30); TROPONIN I 19.7 pg/mL (4.0-60.3); TSH ULTRASENSITIVE 3.88 IU/mL (0.36-3.74)
[2023-08-24 02:23] LABS: APPEARANCE,URINE CLOUDY (CLEAR); BILIRUBIN,URINE NEGATIVE (NEGATIVE); COLOR,URINE YELLOW (YELLOW); GLUCOSE,URINE NORMAL (NORMAL); KETONES,URINE NEGATIVE (NEGATIVE); LEUKOCYTE ESTERASE,URINE LARGE (NEGATIVE); NITRITE,URINE NEGATIVE (NEGATIVE); OCCULT BLOOD,URINE TRACE (NEGATIVE); PROTEIN,URINE 500 mg/dL (NEGATIVE); UROBILINOGEN,URINE NORMAL (NEGATIVE)
[2023-08-24 02:29] LABS: BACTERIA,URINE FEW (NS); SQUAMOUS EPITHELIAL CELLS,UR OCCASIONAL (NS,R,O); WBC,URINE 20-30 (0-5)
[2023-08-24] MEDS ORDERED: Sennosides/Docusate Sodium 50-8.6 MG Tab PO PRN (03:36)
[2023-08-24] MEDS ORDERED: Ondansetron 4 MG/2 ML SDV IV PRN (03:36)
[2023-08-24] MEDS ORDERED: Enoxaparin 40 MG/0.4 ML Syringe SUBCUT SCH (03:45)
[2023-08-24] MEDS ORDERED: cefTRIAXone 1 GM Vial IVPUSH ONE (04:30)
[2023-08-24] MEDS: Sodium Chloride 0.9% 1,000 ML IV SCH ×3 (04:45→21:15)
[2023-08-24] MEDS ORDERED: Cholecalciferol (Vitamin D3) 25 MCG Tab PO SCH (09:00)
[2023-08-24] MEDS: Allopurinol 300 MG Tab PO SCH (10:15)
[2023-08-24] MEDS: predniSONE 1 MG Tab PO SCH (10:15)
[2023-08-24] MEDS: Cholecalciferol (Vitamin D3) 25 MCG Tab PO SCH (10:15)
[2023-08-24] MEDS: Sodium Bicarbonate 650 MG Tab PO SCH ×2 (10:15→20:16)
[2023-08-24] MEDS: Silver Sulfadiazine 1% Crm 50 GM Tube TOP SCH (12:15)
[2023-08-24] MEDS: Metoprolol Succinate 50 MG Tab.ER PO SCH (20:16)
[2023-08-24] MEDS: amLODIPine 5 MG Tab PO SCH (20:17)
[2023-08-25] MEDS: Sodium Chloride 0.9% 1,000 ML IV SCH (05:58)
[2023-08-25] MEDS ORDERED: cefTRIAXone 1 GM Vial IVPUSH SCH (06:00)
[2023-08-25 07:00] LABS: BASOPHILS ABSOLUTE AUTO 0.1 x10-3/uL (0.0-0.3); BASOPHILS PERCENT AUTO 0.7 % (0.3-3.8); EOSINOPHILS ABSOLUTE AUTO 0.3 x10-3/uL (0.0-0.6); EOSINOPHILS PERCENT AUTO 4.5 % (0.1-6.8); HEMATOCRIT 28.4 % (38.3-50.1); HEMOGLOBIN 9.6 g/dL (12.9-17.7); LYMPHOCYTES ABSOLUTE AUTO 1.4 x10-3/uL (0.5-4.5); LYMPHOCYTES PERCENT AUTO 18.6 % (15.8-45.3); MEAN CORPUSCULAR HEMOGLOBIN 32.3 pg (27.0-33.3); MEAN CORPUSCULAR HGB CONC 33.9 g/dL (28.7-35.3); MEAN CORPUSCULAR VOLUME 95.1 fL (80.8-98.7); MEAN PLATELET VOLUME 7.6 fL (6.7-11.0); MONOCYTES ABSOLUTE AUTO 0.6 x10-3/uL (0.0-1.2); MONOCYTES PERCENT AUTO 8.4 % (5.5-15.2); NEUTROPHILS ABSOLUTE AUTO 5.1 x10-3/uL (1.7-6.9); NEUTROPHILS PERCENT AUTO 67.8 % (40.3-71.8); PLATELET COUNT,PLT 131 x10(3)uL (117-477); RED BLOOD CELL COUNT 2.99 x10(6)uL (3.90-5.90); RED CELL DISTRIBUTION WIDTH 15.1 % (12.4-15.0); WHITE BLOOD CELL COUNT,WBC 7.5 x10-3/uL (3.2-10.1)
[2023-08-25 07:13] LABS: A/G RATIO 0.9; ALANINE AMINOTRANSFERASE,ALT 25 U/L (12-36); ALBUMIN 2.5 g/dL (2.9-4.5); ALKALINE PHOSPHATASE 67 IU/L (56-112); ASPARTATE AMNIOTRANSFERASE,AST 14 IU/L (5-25); BILIRUBIN TOTAL 0.3 mg/dL (0.1-1.3); BLOOD UREA NITROGEN,BUN 52 mg/dL (7-18); BUN/CREATININE RATIO 12.7 (9-20); CALCIUM 9.3 mg/dL (8.6-10.2); CARBON DIOXIDE,CO2 26 mmol/L (21-32); CHLORIDE,CL 110 mmol/L (100-110); ESTIMATED GFR 13 mL/min (>60); GLUCOSE RANDOM 84 mg/dL (80-116); POTASSIUM,K 4.3 mmol/L (3.5-5.3); PROTEIN TOTAL,TP 5.4 g/dL (6.0-8.0); SODIUM,NA 144 mmol/L (135-145)
[2023-08-25 07:35] LABS: CREATININE 4.1 mg/dL (0.70-1.30)
[2023-08-25] MEDS ORDERED: Enoxaparin 30 MG/0.3 ML Syringe SUBCUT SCH (08:00)
[2023-08-25] MEDS: Silver Sulfadiazine 1% Crm 50 GM Tube TOP SCH (09:40)
[2023-08-25] MEDS: Sodium Bicarbonate 650 MG Tab PO SCH ×2 (09:40→21:38)
[2023-08-25] MEDS: Allopurinol 300 MG Tab PO SCH (09:40)
[2023-08-25] MEDS: Calcitriol 0.25 MCG Cap PO SCH (09:40)
[2023-08-25] MEDS: predniSONE 1 MG Tab PO SCH (09:40)
[2023-08-25] MEDS: Cholecalciferol (Vitamin D3) 25 MCG Tab PO SCH (09:41)
[2023-08-25] MEDS: Heparin Sodium 5,000 Units/ML Vial SUBCUT SCH ×2 (09:45→21:37)
[2023-08-25] MEDS: amLODIPine 5 MG Tab PO SCH (21:43)
[2023-08-25] MEDS: Metoprolol Succinate 50 MG Tab.ER PO SCH (21:43)
[2023-08-26 07:09] LABS: BASOPHILS ABSOLUTE AUTO 0.1 x10-3/uL (0.0-0.3); BASOPHILS PERCENT AUTO 0.7 % (0.3-3.8); EOSINOPHILS ABSOLUTE AUTO 0.3 x10-3/uL (0.0-0.6); EOSINOPHILS PERCENT AUTO 3.6 % (0.1-6.8); HEMATOCRIT 30.9 % (38.3-50.1); HEMOGLOBIN 10.3 g/dL (12.9-17.7); LYMPHOCYTES ABSOLUTE AUTO 1.5 x10-3/uL (0.5-4.5); LYMPHOCYTES PERCENT AUTO 18.7 % (15.8-45.3); MEAN CORPUSCULAR HEMOGLOBIN 31.6 pg (27.0-33.3); MEAN CORPUSCULAR HGB CONC 33.4 g/dL (28.7-35.3); MEAN CORPUSCULAR VOLUME 94.6 fL (80.8-98.7); MEAN PLATELET VOLUME 8.1 fL (6.7-11.0); MONOCYTES ABSOLUTE AUTO 0.7 x10-3/uL (0.0-1.2); MONOCYTES PERCENT AUTO 8.6 % (5.5-15.2); NEUTROPHILS ABSOLUTE AUTO 5.6 x10-3/uL (1.7-6.9); NEUTROPHILS PERCENT AUTO 68.4 % (40.3-71.8); PLATELET COUNT,PLT 142 x10(3)uL (117-477); RED BLOOD CELL COUNT 3.27 x10(6)uL (3.90-5.90); RED CELL DISTRIBUTION WIDTH 15.2 % (12.4-15.0); WHITE BLOOD CELL COUNT,WBC 8.2 x10-3/uL (3.2-10.1)
[2023-08-26 07:19] LABS: BLOOD UREA NITROGEN,BUN 51 mg/dL (7-18); BUN/CREATININE RATIO 13.1 (9-20); CALCIUM 9.9 mg/dL (8.6-10.2); CARBON DIOXIDE,CO2 26 mmol/L (21-32); CHLORIDE,CL 109 mmol/L (100-110); EST CRCL DRUG DOSING (CG) 14.93 mL/min; ESTIMATED GFR 14 mL/min (>60); GLUCOSE RANDOM 85 mg/dL (80-116); POTASSIUM,K 4.4 mmol/L (3.5-5.3); SODIUM,NA 142 mmol/L (135-145)
[2023-08-26 07:46] LABS: CREATININE 3.9 mg/dL (0.70-1.30)
[2023-08-26] MEDS: predniSONE 1 MG Tab PO SCH (08:32)
[2023-08-26] MEDS: Cholecalciferol (Vitamin D3) 25 MCG Tab PO SCH (08:32)
[2023-08-26] MEDS: Calcitriol 0.25 MCG Cap PO SCH (08:32)
[2023-08-26] MEDS: Sodium Bicarbonate 650 MG Tab PO SCH ×2 (08:32→21:38)
[2023-08-26] MEDS: Heparin Sodium 5,000 Units/ML Vial SUBCUT SCH ×2 (08:32→21:36)
[2023-08-26] MEDS: Allopurinol 300 MG Tab PO SCH (08:33)
[2023-08-26] MEDS: Silver Sulfadiazine 1% Crm 50 GM Tube TOP SCH (08:34)
[2023-08-26] MEDS: amLODIPine 5 MG Tab PO SCH (21:38)
[2023-08-26] MEDS: Metoprolol Succinate 50 MG Tab.ER PO SCH (21:38)
[2023-08-26] MEDS: Sodium Chloride 0.9% 10 ML Syringe FLUSH PRN (21:40)
[2023-08-27] MEDS: predniSONE 1 MG Tab PO SCH (08:54)
[2023-08-27] MEDS: Sodium Bicarbonate 650 MG Tab PO SCH ×2 (08:54→20:01)
[2023-08-27] MEDS: Cholecalciferol (Vitamin D3) 25 MCG Tab PO SCH (08:55)
[2023-08-27] MEDS: Silver Sulfadiazine 1% Crm 50 GM Tube TOP SCH (08:55)
[2023-08-27] MEDS: Allopurinol 300 MG Tab PO SCH (08:56)
[2023-08-27] MEDS: Heparin Sodium 5,000 Units/ML Vial SUBCUT SCH ×2 (09:03→20:02)
[2023-08-27] MEDS: Metoprolol Succinate 50 MG Tab.ER PO SCH (20:01)
[2023-08-27] MEDS: amLODIPine 5 MG Tab PO SCH (20:01)
[2023-08-28 07:02] LABS: BASOPHILS ABSOLUTE AUTO 0.1 x10-3/uL (0.0-0.3); BASOPHILS PERCENT AUTO 0.7 % (0.3-3.8); EOSINOPHILS ABSOLUTE AUTO 0.2 x10-3/uL (0.0-0.6); EOSINOPHILS PERCENT AUTO 2.2 % (0.1-6.8); HEMOGLOBIN 10.2 g/dL (12.9-17.7); LYMPHOCYTES ABSOLUTE AUTO 1.4 x10-3/uL (0.5-4.5); LYMPHOCYTES PERCENT AUTO 16.1 % (15.8-45.3); MEAN CORPUSCULAR HEMOGLOBIN 32.4 pg (27.0-33.3); MEAN CORPUSCULAR HGB CONC 34.1 g/dL (28.7-35.3); MEAN CORPUSCULAR VOLUME 95.2 fL (80.8-98.7); MEAN PLATELET VOLUME 7.6 fL (6.7-11.0); MONOCYTES ABSOLUTE AUTO 0.9 x10-3/uL (0.0-1.2); MONOCYTES PERCENT AUTO 10.3 % (5.5-15.2); NEUTROPHILS ABSOLUTE AUTO 5.9 x10-3/uL (1.7-6.9); NEUTROPHILS PERCENT AUTO 70.7 % (40.3-71.8); PLATELET COUNT,PLT 152 x10(3)uL (117-477); RED BLOOD CELL COUNT 3.15 x10(6)uL (3.90-5.90); RED CELL DISTRIBUTION WIDTH 15.3 % (12.4-15.0); WHITE BLOOD CELL COUNT,WBC 8.4 x10-3/uL (3.2-10.1)
[2023-08-28 07:09] LABS: BLOOD UREA NITROGEN,BUN 53 mg/dL (7-18); BUN/CREATININE RATIO 12.9 (9-20); CALCIUM 9.8 mg/dL (8.6-10.2); CARBON DIOXIDE,CO2 24 mmol/L (21-32); CHLORIDE,CL 107 mmol/L (100-110); ESTIMATED GFR 13 mL/min (>60); GLUCOSE RANDOM 93 mg/dL (80-116); POTASSIUM,K 4.4 mmol/L (3.5-5.3); SODIUM,NA 141 mmol/L (135-145)
[2023-08-28 07:16] LABS: CREATININE 4.1 mg/dL (0.70-1.30)
[2023-08-28] MEDS: Cholecalciferol (Vitamin D3) 25 MCG Tab PO SCH (08:38)
[2023-08-28] MEDS: Silver Sulfadiazine 1% Crm 50 GM Tube TOP SCH (08:38)
[2023-08-28] MEDS: Calcitriol 0.25 MCG Cap PO SCH (08:38)
[2023-08-28] MEDS: predniSONE 1 MG Tab PO SCH (08:38)
[2023-08-28] MEDS: Allopurinol 300 MG Tab PO SCH (08:39)
[2023-08-28] MEDS: Heparin Sodium 5,000 Units/ML Vial SUBCUT SCH ×2 (08:39→20:24)
[2023-08-28] MEDS: Sodium Bicarbonate 650 MG Tab PO SCH ×2 (08:39→20:25)
[2023-08-28] MEDS: Acetaminophen 325 MG Tab PO PRN ×2 (10:15→17:30)
[2023-08-28] MEDS: amLODIPine 5 MG Tab PO SCH (20:24)
[2023-08-28] MEDS: Metoprolol Succinate 50 MG Tab.ER PO SCH (20:25)
[2023-08-29] MEDS: predniSONE 1 MG Tab PO SCH (08:22)
[2023-08-29] MEDS: Heparin Sodium 5,000 Units/ML Vial SUBCUT SCH ×2 (08:22→21:05)
[2023-08-29] MEDS: Sodium Bicarbonate 650 MG Tab PO SCH ×2 (08:23→21:07)
[2023-08-29] MEDS: Silver Sulfadiazine 1% Crm 50 GM Tube TOP SCH (08:23)
[2023-08-29] MEDS: Cholecalciferol (Vitamin D3) 25 MCG Tab PO SCH (08:24)
[2023-08-29] MEDS: Allopurinol 300 MG Tab PO SCH (08:24)
[2023-08-29] MEDS: amLODIPine 5 MG Tab PO SCH (21:05)
[2023-08-29] MEDS: Metoprolol Succinate 50 MG Tab.ER PO SCH (21:07)
[2023-08-30 06:32] LABS: BLOOD UREA NITROGEN,BUN 65 mg/dL (7-18); BUN/CREATININE RATIO 14.4 (9-20); CALCIUM 9.4 mg/dL (8.6-10.2); CARBON DIOXIDE,CO2 24 mmol/L (21-32); CHLORIDE,CL 107 mmol/L (100-110); EST CRCL DRUG DOSING (CG) 12.94 mL/min; ESTIMATED GFR 12 mL/min (>60); GLUCOSE RANDOM 87 mg/dL (80-116); POTASSIUM,K 4.4 mmol/L (3.5-5.3); SODIUM,NA 140 mmol/L (135-145)
[2023-08-30 06:39] LABS: CREATININE 4.5 mg/dL (0.70-1.30)
[2023-08-30] MEDS ORDERED: Sodium Chloride 0.9% 1,000 ML IV SCH (08:00)
[2023-08-30] MEDS: Sodium Bicarbonate 650 MG Tab PO SCH ×2 (08:41→20:48)
[2023-08-30] MEDS: Calcitriol 0.25 MCG Cap PO SCH (08:41)
[2023-08-30] MEDS: Cholecalciferol (Vitamin D3) 25 MCG Tab PO SCH (08:41)
[2023-08-30] MEDS: predniSONE 1 MG Tab PO SCH (08:41)
[2023-08-30] MEDS: Allopurinol 300 MG Tab PO SCH (08:41)
[2023-08-30] MEDS: Heparin Sodium 5,000 Units/ML Vial SUBCUT SCH ×2 (08:42→20:47)
[2023-08-30] MEDS: Silver Sulfadiazine 1% Crm 50 GM Tube TOP SCH (08:42)
[2023-08-30] MEDS: Sodium Chloride 0.9% 10 ML Syringe FLUSH PRN (09:10)
[2023-08-30] MEDS: amLODIPine 5 MG Tab PO SCH (20:47)
[2023-08-30] MEDS: Metoprolol Succinate 50 MG Tab.ER PO SCH (20:48)
[2023-08-31] MEDS: Silver Sulfadiazine 1% Crm 50 GM Tube TOP SCH (08:44)
[2023-08-31] MEDS: Heparin Sodium 5,000 Units/ML Vial SUBCUT SCH (08:45)
[2023-08-31] MEDS: predniSONE 1 MG Tab PO SCH (08:45)
[2023-08-31] MEDS: Allopurinol 300 MG Tab PO SCH (08:45)
[2023-08-31] MEDS: Sodium Bicarbonate 650 MG Tab PO SCH (08:45)
[2023-08-31] MEDS: Cholecalciferol (Vitamin D3) 25 MCG Tab PO SCH (08:46)
[2023-08-31] MEDS ORDERED: Tuberculin, PPD 5 Units/0.1 ML 1 ML MDV IDERM ONE (09:46)
[2023-08-31 09:59] VITALS: BP 138/88; PULSE 89
== END 2023-08-31 10:23 | DRG 71 ==
LOC: FB.ED 23:54 → FB.MS 08-24 03:36
PROVIDERS: ADMIT Emergency Medicine; ATTEND Family Medicine
DX: R41.0 Disorientation, unspecified (principal); G93.40 Encephalopathy, unspecified; F02.B18 Dementia in other diseases classified elsewhere, moderate, with other behavioral disturbance; T33.822A Superficial frostbite of left foot, initial encounter; T33.821A Superficial frostbite of right foot, initial encounter; I13.0 Hypertensive heart and chronic kidney disease with heart failure and stage 1 through stage 4 chronic kidney disease, or unspecified chronic kidney disease; I13.2 Hypertensive heart and chronic kidney disease with heart failure and with stage 5 chronic kidney disease, or end stage renal disease; F05 Delirium due to known physiological condition; N17.9 Acute kidney failure, unspecified; N18.5 Chronic kidney disease, stage 5; N39.0 Urinary tract infection, site not specified; E86.0 Dehydration; I50.9 Heart failure, unspecified; R32 Unspecified urinary incontinence; M19.90 Unspecified osteoarthritis, unspecified site; M06.9 Rheumatoid arthritis, unspecified; Z66 Do not resuscitate; D63.1 Anemia in chronic kidney disease; G30.1 Alzheimer's disease with late onset; G31.9 Degenerative disease of nervous system, unspecified; Z95.0 Presence of cardiac pacemaker; Z98.49 Cataract extraction status, unspecified eye; Z98.890 Other specified postprocedural states; Z79.899 Other long term (current) drug therapy; G30.9 Alzheimer's disease, unspecified; F02.80 Dementia in other diseases classified elsewhere, unspecified severity, without behavioral disturbance, psychotic disturbance, mood disturbance, and anxiety; X31.XXXA Exposure to excessive natural cold, initial encounter
CPT/HCPCS: 36415; 71045; 80048; 80053; 81001; 84443; 84484; 85025; 86580; 87086; 93005; 93010; 97161-GP; 99223; 99233; 99239; 99285; A9270-GY; J0696; J1644; J1650; J3490; J7030; J7512; U0002

== ENCOUNTER 2024-01-24 17:00 | Inpatient (IN) | payer MEDICARE, BC ==
[2024-01-24] MEDS ORDERED: Sodium Chloride 0.9% 10 ML Syringe FLUSH PRN (17:28)
[2024-01-24] MEDS: Piperacillin/Tazobactam 4.5 GM in Sodium Chloride 0.9% 100 ML IV ONE (17:43)
[2024-01-24] MEDS ORDERED: Sodium Chloride 0.9% 1,000 ML IV SCH (17:45)
[2024-01-24] MEDS: Acetaminophen 500 MG Tab PO ONE (17:53)
[2024-01-24] MEDS: Sodium Chloride 0.9% 1,000 ML IV SCH (17:54)
[2024-01-24 17:57] LABS: HEMATOCRIT 35.8 % (38.3-50.1); HEMOGLOBIN 11.5 g/dL (12.9-17.7); MEAN CORPUSCULAR HGB CONC 32.3 g/dL (28.7-35.3); PLATELET COUNT,PLT 255 x10(3)uL (117-477); RED BLOOD CELL COUNT 3.85 x10(6)uL (3.90-5.90); RED CELL DISTRIBUTION WIDTH 15.9 % (12.4-15.0); WHITE BLOOD CELL COUNT,WBC 9.6 x10-3/uL (3.2-10.1)
[2024-01-24 17:58] LABS: BASE EXCESS VENOUS,POC -4 mmol/L (-2 - 3+); PCO2 VENOUS,POC 33 mmHg (41-51); PH VENOUS,POC 7.39 pH Units (7.32-7.43)
[2024-01-24 18:07] LABS: INR 1.03 (1.00-1.24); PROTHROMBIN TIME 10.7 sec (9.0-11.1); PTT,PARTIAL THROMBOPLSTIN TIME 25.3 SECONDS (24.4-33.2)
[2024-01-24 18:09] LABS: A/G RATIO 0.7; ALANINE AMINOTRANSFERASE,ALT 20 U/L (12-36); ALBUMIN 2.4 g/dL (2.9-4.5); ALKALINE PHOSPHATASE 157 IU/L (56-112); ASPARTATE AMNIOTRANSFERASE,AST 19 IU/L (5-25); BILIRUBIN TOTAL 0.6 mg/dL (0.1-1.3); BLOOD UREA NITROGEN,BUN 78 mg/dL (7-18); BUN/CREATININE RATIO 13.9 (9-20); CARBON DIOXIDE,CO2 23 mmol/L (21-32); CHLORIDE,CL 108 mmol/L (100-110); ESTIMATED GFR 9 mL/min (>60); GLUCOSE RANDOM 107 mg/dL (80-116); PROTEIN TOTAL,TP 6.1 g/dL (6.0-8.0); SODIUM,NA 145 mmol/L (135-145)
[2024-01-24 18:13] LABS: TROPONIN I 25.4 pg/mL (4.0-60.3)
[2024-01-24 18:16] LABS: CREATININE 5.6 mg/dL (0.70-1.30)
[2024-01-24 18:17] LABS: BAND PERCENT MAN 3 % (0-6); LACTIC ACID 2.6 mmol/L (0.4-2.0); LYMPHOCYTES PERCENT MAN 2 % (13-37); MONOCYTES PERCENT MAN 3 % (4-12); SEG NEUTROPHILS PERCENT MAN 92 % (46-82)
[2024-01-24 18:27] LABS: BILIRUBIN,URINE NEGATIVE (NEGATIVE); GLUCOSE,URINE NORMAL (NORMAL); KETONES,URINE NEGATIVE (NEGATIVE); LEUKOCYTE ESTERASE,URINE LARGE (NEGATIVE); NITRITE,URINE NEGATIVE (NEGATIVE); OCCULT BLOOD,URINE MODERATE (NEGATIVE); PROTEIN,URINE 500 mg/dL (NEGATIVE); UROBILINOGEN,URINE NORMAL (NEGATIVE)
[2024-01-24] MEDS: methylPREDNISolone Sodium Succinate 125 MG/2 ML SDV IV ONE (18:27)
[2024-01-24] MEDS: Albuterol/Ipratropium 3.0-0.5 MG/3 ML Neb Soln NEB ONE (18:27)
[2024-01-24] MEDS: VANCOmycin 1.75 GM/350 ML 1.75 GM in Premix Bag 1 BAG IV ONE (18:31)
[2024-01-24 18:32] LABS: APPEARANCE,URINE SLIGHTLY CLOUDY (CLEAR); COLOR,URINE YELLOW (YELLOW)
[2024-01-24 18:33] LABS: BACTERIA,URINE MODERATE (NS); SQUAMOUS EPITHELIAL CELLS,UR OCCASIONAL (NS,R,O); WBC,URINE 20-30 (0-5)
[2024-01-24] MEDS ORDERED: Acetaminophen 325 MG Tab PO PRN (19:10)
[2024-01-24] MEDS ORDERED: Albuterol 0.083% 2.5 MG/3 ML Neb Soln NEB PRN (19:10)
[2024-01-24] MEDS ORDERED: Sennosides/Docusate Sodium 50-8.6 MG Tab PO PRN (19:10)
[2024-01-24] MEDS ORDERED: Ondansetron 4 MG/2 ML SDV IV PRN (19:10)
[2024-01-24 19:54] LABS: INFLUENZA A NAA NEGATIVE (NEGATIVE); INFLUENZA B NAA NEGATIVE (NEGATIVE); RESPIRATORY SYNCYTIAL VIR NAA NEGATIVE (NEGATIVE)
[2024-01-24 19:55] LABS: CORONAVIRUS COVID-19 NAA NEGATIVE (NEGATIVE)
[2024-01-24] MEDS: Saccharomyces Boulardii (Probiotic) 250 MG Cap PO SCH (21:18)
[2024-01-24] MEDS: Enoxaparin 30 MG/0.3 ML Syringe SUBCUT SCH (21:18)
[2024-01-24] MEDS: Albuterol/Ipratropium 3.0-0.5 MG/3 ML Neb Soln NEB SCH (21:18)
[2024-01-24] MEDS ORDERED: Bisacodyl 10 MG Supp RECTAL PRN (22:28)
[2024-01-24] MEDS ORDERED: Non-Formulary Medication 1 Each (Loperamide Hcl [Imodium A-D] 2 MG Tablet) PO PRN (22:28)
[2024-01-24] MEDS ORDERED: Non-Formulary Medication 1 Each (Mag Hydrox/Al Hydrox/Simeth [Geri-Lanta] 355 ML Oral.Susp PO PRN (22:28)
[2024-01-24] MEDS ORDERED: PRAMOXINE HCL TOP SCH ×2 (22:30→23:15)
[2024-01-24] MEDS ORDERED: Loperamide 2 MG Cap PO PRN (22:55)
[2024-01-25 00:50] LABS: LACTIC ACID 3.1 mmol/L (0.4-2.0)
[2024-01-25 06:31] LABS: HEMATOCRIT 29.5 % (38.3-50.1); HEMOGLOBIN 9.2 g/dL (12.9-17.7); MEAN CORPUSCULAR HEMOGLOBIN 29.3 pg (27.0-33.3); MEAN CORPUSCULAR VOLUME 94.6 fL (80.8-98.7); MEAN PLATELET VOLUME 8.2 fL (6.7-11.0); PLATELET COUNT,PLT 174 x10(3)uL (117-477); RED BLOOD CELL COUNT 3.12 x10(6)uL (3.90-5.90); RED CELL DISTRIBUTION WIDTH 16.5 % (12.4-15.0); WHITE BLOOD CELL COUNT,WBC 11.6 x10-3/uL (3.2-10.1)
[2024-01-25 06:45] LABS: A/G RATIO 0.6; ALANINE AMINOTRANSFERASE,ALT 16 U/L (12-36); ALKALINE PHOSPHATASE 92 IU/L (56-112); ASPARTATE AMNIOTRANSFERASE,AST 17 IU/L (5-25); BILIRUBIN TOTAL 0.6 mg/dL (0.1-1.3); BLOOD UREA NITROGEN,BUN 84 mg/dL (7-18); BUN/CREATININE RATIO 13.3 (9-20); CALCIUM 8.3 mg/dL (8.6-10.2); CARBON DIOXIDE,CO2 23 mmol/L (21-32); CHLORIDE,CL 110 mmol/L (100-110); EST CRCL DRUG DOSING (CG) 8.98 mL/min; ESTIMATED GFR 8 mL/min (>60); GLUCOSE RANDOM 127 mg/dL (80-116); POTASSIUM,K 4.3 mmol/L (3.5-5.3); PROTEIN TOTAL,TP 5.4 g/dL (6.0-8.0); SODIUM,NA 147 mmol/L (135-145)
[2024-01-25 06:48] LABS: BAND PERCENT MAN 11 % (0-6); EOSINOPHILS PERCENT MAN 1 % (0-5); LYMPHOCYTES PERCENT MAN 12 % (13-37); MONOCYTES PERCENT MAN 6 % (4-12); SEG NEUTROPHILS PERCENT MAN 70 % (46-82)
[2024-01-25 06:51] LABS: CREATININE 6.3 mg/dL (0.70-1.30)
[2024-01-25] MEDS ORDERED: Aluminum Hydroxide/Magnesium Hydroxide Susp 30 ML Cup PO PRN (07:42)
[2024-01-25] MEDS: Allopurinol 300 MG Tab PO SCH (08:20)
[2024-01-25] MEDS: Sodium Bicarbonate 650 MG Tab PO SCH (08:20)
[2024-01-25] MEDS: predniSONE 1 MG Tab PO SCH (08:20)
[2024-01-25] MEDS: Ferrous Sulfate 325 MG Tab PO SCH (08:20)
[2024-01-25] MEDS: Cholecalciferol (Vitamin D3) 25 MCG Tab PO SCH (08:21)
[2024-01-25] MEDS: Piperacillin/Tazobactam 4.5 GM in Sodium Chloride 0.9% 100 ML IV ONE (08:24)
[2024-01-25] MEDS ORDERED: Non-Formulary Medication 1 Each (Sevelamer Carbonate [Renvela] 800 MG Tablet) PO SCH ×2 (09:00)
[2024-01-25] MEDS: Piperacillin/Tazobactam 4.5 GM in Sodium Chloride 0.9% 100 ML IV SCH (13:24)
[2024-01-25 16:09] LABS: A/G RATIO 0.5; ALANINE AMINOTRANSFERASE,ALT 14 U/L (12-36); ALBUMIN 1.9 g/dL (2.9-4.5); ALKALINE PHOSPHATASE 78 IU/L (56-112); ASPARTATE AMNIOTRANSFERASE,AST 16 IU/L (5-25); BILIRUBIN TOTAL 0.5 mg/dL (0.1-1.3); BLOOD UREA NITROGEN,BUN 90 mg/dL (7-18); BUN/CREATININE RATIO 14.1 (9-20); CALCIUM 8.6 mg/dL (8.6-10.2); CARBON DIOXIDE,CO2 20 mmol/L (21-32); CHLORIDE,CL 109 mmol/L (100-110); EST CRCL DRUG DOSING (CG) 8.84 mL/min; ESTIMATED GFR 8 mL/min (>60); GLUCOSE RANDOM 138 mg/dL (80-116); POTASSIUM,K 4.4 mmol/L (3.5-5.3); PROTEIN TOTAL,TP 5.4 g/dL (6.0-8.0); SODIUM,NA 148 mmol/L (135-145)
[2024-01-25 16:22] LABS: CREATININE 6.4 mg/dL (0.70-1.30)
[2024-01-25] MEDS: Heparin Sodium 5,000 Units/ML Vial SUBCUT SCH (20:24)
[2024-01-25] MEDS: Sodium Chloride 0.9% 1,000 ML IV SCH (23:43)
[2024-01-26 06:39] LABS: HEMATOCRIT 24.7 % (38.3-50.1); MEAN CORPUSCULAR HEMOGLOBIN 30.2 pg (27.0-33.3); MEAN CORPUSCULAR HGB CONC 32.3 g/dL (28.7-35.3); MEAN CORPUSCULAR VOLUME 93.4 fL (80.8-98.7); MEAN PLATELET VOLUME 8.3 fL (6.7-11.0); PLATELET COUNT,PLT 152 x10(3)uL (117-477); RED BLOOD CELL COUNT 2.65 x10(6)uL (3.90-5.90); RED CELL DISTRIBUTION WIDTH 16.4 % (12.4-15.0); WHITE BLOOD CELL COUNT,WBC 9.5 x10-3/uL (3.2-10.1)
[2024-01-26 06:52] LABS: A/G RATIO 0.6; ALANINE AMINOTRANSFERASE,ALT 17 U/L (12-36); ALBUMIN 1.8 g/dL (2.9-4.5); ALKALINE PHOSPHATASE 64 IU/L (56-112); ASPARTATE AMNIOTRANSFERASE,AST 16 IU/L (5-25); BILIRUBIN TOTAL 0.4 mg/dL (0.1-1.3); BLOOD UREA NITROGEN,BUN 91 mg/dL (7-18); BUN/CREATININE RATIO 15.4 (9-20); CALCIUM 8.4 mg/dL (8.6-10.2); CARBON DIOXIDE,CO2 21 mmol/L (21-32); CHLORIDE,CL 110 mmol/L (100-110); EST CRCL DRUG DOSING (CG) 9.59 mL/min; ESTIMATED GFR 9 mL/min (>60); GLUCOSE RANDOM 109 mg/dL (80-116); POTASSIUM,K 4.4 mmol/L (3.5-5.3); PROTEIN TOTAL,TP 5.1 g/dL (6.0-8.0); SODIUM,NA 147 mmol/L (135-145)
[2024-01-26 06:59] LABS: BAND PERCENT MAN 7 % (0-6); CREATININE 5.9 mg/dL (0.70-1.30); LYMPHOCYTES PERCENT MAN 7 % (13-37); MONOCYTES PERCENT MAN 3 % (4-12); SEG NEUTROPHILS PERCENT MAN 83 % (46-82)
[2024-01-26 07:01] LABS: ANISOCYTOSIS FEW
[2024-01-26] MEDS: Hydrocortisone Sodium Succinate 100 MG/2 ML SDV IVPUSH ONE (10:32)
[2024-01-26 10:49] LABS: BASE EXCESS VENOUS,POC -7 mmol/L (-2 - 3+); PCO2 VENOUS,POC 36 mmHg (41-51); PH VENOUS,POC 7.33 pH Units (7.32-7.43)
[2024-01-26 12:22] VITALS: BP 119/77; PULSE 108
== END 2024-01-26 13:30 | DRG 871 ==
LOC: FB.ED 17:00 → FB.MS 19:11
PROVIDERS: ADMIT Emergency Medicine; ATTEND Internal Medicine
PROC: 5A09357 Assistance with Respiratory Ventilation, Less than 24 Consecutive Hours, Continuous Positive Airway Pressure (ICD-10-PCS; principal; 2024-01-24)
PROC: 3E03329 Introduction of Other Anti-infective into Peripheral Vein, Percutaneous Approach (ICD-10-PCS; 2024-01-24)
DX: A41.9 Sepsis, unspecified organism (principal); J18.9 Pneumonia, unspecified organism; J96.01 Acute respiratory failure with hypoxia; N39.0 Urinary tract infection, site not specified; I13.0 Hypertensive heart and chronic kidney disease with heart failure and stage 1 through stage 4 chronic kidney disease, or unspecified chronic kidney disease; N18.5 Chronic kidney disease, stage 5; I13.2 Hypertensive heart and chronic kidney disease with heart failure and with stage 5 chronic kidney disease, or end stage renal disease; N18.4 Chronic kidney disease, stage 4 (severe); E87.20 Acidosis, unspecified; F02.B18 Dementia in other diseases classified elsewhere, moderate, with other behavioral disturbance; G93.40 Encephalopathy, unspecified; N17.9 Acute kidney failure, unspecified; I95.9 Hypotension, unspecified; Z66 Do not resuscitate; I50.9 Heart failure, unspecified; M19.90 Unspecified osteoarthritis, unspecified site; M06.9 Rheumatoid arthritis, unspecified; E21.3 Hyperparathyroidism, unspecified; M10.9 Gout, unspecified; G30.1 Alzheimer's disease with late onset; D63.1 Anemia in chronic kidney disease; R65.20 Severe sepsis without septic shock; Z79.899 Other long term (current) drug therapy; Z85.828 Personal history of other malignant neoplasm of skin; Z95.0 Presence of cardiac pacemaker; Z98.49 Cataract extraction status, unspecified eye; Z98.890 Other specified postprocedural states
CPT/HCPCS: 0241U; 36415; 51702; 71045; 80053; 80202; 81001; 83605; 83880; 84484; 85025; 85610; 85730; 87040; 87086; 93005; 94640; 94660; 96365; 96367; 96375; 99285; 93010; 99223; 99238; A9270-GY; C1758; J1644; J1650; J1720; J2543; J2919; J3370; J3490; J7030; J7512; J7620